=== PATIENT | female | born 1965 | race Caucasian/White ===

== ENCOUNTER 2017-02-13 20:42 | Emergency (ER) | payer OTHER ==
[~2017-02-13] VITALS: Ht 175.3 cm; Wt 120.7 kg
[~2017-02-13 20:42] MED LIST: /AUGM875TA OR; /CELE20CA OR; COLA100C2 OR; PERC5TAB8 OR; PERC7.5T8 OR; SIME80TA PO
[2017-02-13 20:43] VITALS: BP 170/87
== END 2017-02-14 00:22 | disposition left against medical advice (07) ==
LOC: M ED 21:44
DX: M79.89 Other specified soft tissue disorders (principal); Z53.21 Procedure and treatment not carried out due to patient leaving prior to being seen by health care provider

== ENCOUNTER → 2017-02-15 | Outpatient (CLI) | payer OTHER ==
--- NOTE | 2017-02-15 13:27 | REP ---
Right lower extremity Duplex Doppler venous ultrasound: Real time compression and duplex Doppler interrogation of the right lower extremity deep venous system is performed. The right common femoral, superficial femoral and popliteal veins are fully compressible with transducer pressure and demonstrate normal spontaneous and phasic flow, without evidence of deep venous thrombosis. Impression: No evidence of deep venous thrombosis of the right lower extremity femoral popliteal venous system. Signed by Cruz Perrin MD 02/15/2017 01:19 P
== END ==
LOC: M RAD 12:45
PROVIDERS: ATTEND Nurse Practitioner Family
DX: M79.604 Pain in right leg (principal)

== ENCOUNTER 2017-03-23 19:26 | Emergency (ER) | payer OTHER, SELFPAY ==
[~2017-03-23] VITALS: Ht 175.3 cm; Wt 121.4 kg
[2017-03-23] MEDS ORDERED: VITA500C24 PO (19:34)
[2017-03-23] MEDS ORDERED: ALBU17IN INH (19:34)
[2017-03-23] MEDS ORDERED: MULT1TAB18 PO (19:34)
[2017-03-23] MEDS ORDERED: HYDR12.55 PO (19:34)
[2017-03-23] MEDS ORDERED: VITA50003 PO (19:34)
--- NOTE | 2017-03-23 21:00 | REPUSA ---
CLINICAL HISTORY: Edema. COMMENTS: Real time sonography with duplex doppler was performed with attention to the major deep venous struct ures. Evaluation reveals the common femoral, superficial femoral, popliteal and posterior tibial veins to be completely compressible without intraluminal thrombus. There is normal spontaneous phasic flow and augmentation in all deep veins. The greater saphenous/common femoral vein junction is patent. IMPRESSION: No evidence of DVT. Thank you for your kind referral of this patient.
[2017-03-23] MEDS ORDERED: CLEO300C2 PO (21:08)
[2017-03-23] MEDS ORDERED: NORCOTAB PO (21:08)
[2017-03-23] MEDS ORDERED: NORCO, ANEXSIA 5/325MG TABLET (HYDROcodone/ACETAMINOPHEN) PO ONE (21:15)
[2017-03-23] MEDS ORDERED: CLINDAMYCIN 150 MG CAP PO ONE (21:15)
[2017-03-23 21:18] VITALS: BP 133/78
== END 2017-03-23 21:37 | disposition home or self-care (01) ==
LOC: M ED 20:36
DX: L03.116 Cellulitis of left lower limb (principal); F41.9 Anxiety disorder, unspecified; F32.9 Major depressive disorder, single episode, unspecified; F17.200 Nicotine dependence, unspecified, uncomplicated; Z98.84 Bariatric surgery status; Z88.2 Allergy status to sulfonamides; Z79.899 Other long term (current) drug therapy

== ENCOUNTER 2017-07-03 21:12 | Emergency (ER) | payer OTHER, SELFPAY ==
[~2017-07-03] VITALS: Ht 175.3 cm; Wt 122.6 kg
[~2017-07-03 21:12] MED LIST changes: +ALBU17IN INH; +CLEO300C2 PO; +HYDR12.55 PO; +MULT1TAB18 PO; +NORCOTAB PO; +VITA1CAP40 PO; +VITA500C24 PO
[2017-07-03 21:13] VITALS: BP 143/87
[2017-07-03] MEDS ORDERED: TETRACAINE 0.5% OPHTH SOLN 4ML OD ONE (22:00)
== END 2017-07-03 22:56 | disposition home or self-care (01) ==
LOC: M ED 21:12
DX: H11.31 Conjunctival hemorrhage, right eye (principal); I10 Essential (primary) hypertension; J44.9 Chronic obstructive pulmonary disease, unspecified; Z72.0 Tobacco use

== ENCOUNTER 2017-07-04 22:50 | Emergency (ER) | payer OTHER ==
[~2017-07-04] VITALS: Ht 175.3 cm; Wt 122.7 kg
[2017-07-05 00:35] VITALS: BP 128/80
[2017-07-05] MEDS ORDERED: ARTI99.0 OU (00:39)
[2017-07-05] MEDS ORDERED: FLUORESCEIN OPHTH 1 MG STRIP OD ONE (00:45)
== END 2017-07-05 01:00 | disposition home or self-care (01) ==
LOC: M ED 22:50
DX: H11.31 Conjunctival hemorrhage, right eye (principal); Z72.0 Tobacco use

== ENCOUNTER → 2017-08-01 | Outpatient (REF) | payer OTHER ==
[~2017-08-01] MED LIST changes: +ARTI99.0 OU; +PAXI10TA12 PO
[2017-08-01 21:35] LABS: BACTERIA, URINE MOD AMOUNT; RBC, URINE 0-1 /hpf (0-3); SQUAMOUS EPITHELIAL CELL URINE LARGE AMOUNT /hpf (SMALL AMT)
[2017-08-01 21:36] LABS: HYALINE CAST, URINE 0-1 /lpf (0-1); MICROSCOPIC EXAM PERFORMED
== END ==
LOC: M SMT 16:55
PROVIDERS: ATTEND Specialist
DX: R35.0 Frequency of micturition (principal)

== ENCOUNTER 2017-08-09 22:42 | Emergency (ER) | payer OTHER ==
[~2017-08-09] VITALS: Ht 175.3 cm; Wt 122.7 kg
[~2017-08-09 22:42] MED LIST changes: -PAXI10TA12 PO
[2017-08-09] MEDS ORDERED: PAXI10TA12 PO (22:51)
[2017-08-10 01:23] VITALS: BP 148/72
== END 2017-08-10 05:18 | disposition left against medical advice (07) ==
LOC: M ED 22:42
DX: M79.669 Pain in unspecified lower leg (principal); Z53.29 Procedure and treatment not carried out because of patient's decision for other reasons

== ENCOUNTER → 2017-08-30 | Outpatient (CLI) | payer OTHER ==
[~2017-08-30] MED LIST changes: +METHACHOLINE KIT (J7674) INH ONE; +PAXI10TA12 PO
[2017-08-30 15:55] LABS: MEAN CORPUSCULAR HEMOGLOBIN 28.9 pg (27.0-33.0); MEAN CORPUSCULAR HGB CONC 32.7 g/dl (32.0-36.5); MEAN CORPUSCULAR VOLUME 88.3 fl (80.0-96.0); PLATELET COUNT, AUTOMATED 301 10^3/uL (150-450); RED CELL DISTRIBUTION WIDTH 13.1 % (11.5-14.5); WHITE BLOOD COUNT 8.3 10^3/uL (4.0-10.0)
--- NOTE | 2017-08-30 16:17 | PFTRPT ---
Tech: Dax CRUZ RRT Age: 52 Sex: Female Race: Height: 66.00 Inches Weight: 263.00 Lbs BSA: 2.25 Diagnosis: R06.00 PULMONARY FUNCTION TESTING: ORDERING PROVIDER: DAVID Marshall DATE OF SERVICE: 08/30/17 SPIROMETRY: Pre and post bronchodilator study of excellent technical quality. The forced vital capacity is normal. The FEV1 is in proportion. The obstructive index is, therefore, normal. FLOW VOLUME LOOP: The expiratory limb of the flow volume loop is normal. No significant bronchodilator response is identified. LUNG MECHANICS: The total lung capacity is normal. The residual volume is borderline for air trapping. DIFFUSION CAPACITY: The diffusion capacity is normal. HEMOGLOBIN: No hemoglobin is available for correction. AIRWAY MECHANICS: Airway resistance and conductance are only mildly abnormal. IMPRESSION: Probably normal study. MTDD
[2017-08-30 16:20] LABS: ALBUMIN 3.7 GM/DL (3.2-5.2); ALKALINE PHOSPHATASE 121 U/L (45-117); ALT/SGPT 32 U/L (12-78); ANION GAP 9 MEQ/L (8-16); AST/SGOT 21 U/L (15-37); BILIRUBIN,TOTAL 0.3 MG/DL (0.2-1.0); BLOOD UREA NITROGEN 17 MG/DL (7-18); CALCIUM LEVEL 9.1 MG/DL (8.5-10.1); CARBON DIOXIDE LEVEL 28 MEQ/L (21-32); CHLORIDE LEVEL 102 MEQ/L (98-107); CREATININE FOR GFR 0.69 MG/DL (0.55-1.02); GLOMERULAR FILTRATION RATE > 60.0 (>51); GLUCOSE, FASTING 102 MG/DL (70-105); POTASSIUM SERUM 4.2 MEQ/L (3.5-5.1); SODIUM LEVEL 139 MEQ/L (136-145); TOTAL PROTEIN 7.4 GM/DL (6.4-8.2)
[2017-08-30 16:57] LABS: VITAMIN B12 LEVEL 326 PG/ML (247-911)
== END ==
LOC: M CARPUL 14:45
PROVIDERS: ATTEND Nurse Practitioner Adult Health
DX: R60.0 Localized edema (principal)

== ENCOUNTER → 2017-09-27 | Outpatient (CLI) | payer OTHER ==
[~2017-09-27] MED LIST changes: -METHACHOLINE KIT (J7674) INH ONE
--- NOTE | 2017-09-27 09:59 | REP ---
BILATERAL MAMMOGRAM: Bilateral mammography performed in the MLO and CC projections and compared to prior study 05/08/2014. Mild scattered fibroglandular tissue is again seen bilaterally in a fairly symmetrical pattern. There does appear to be a new 5 mm nodular density medially in the left breast, only seen on the CC view, not on the MLO view. No other new mass or clustered microcalcifications are seen. IMPRESSION: ACR 0 incomplete. Suspect new 5 mm nodular density medially in the left breast, only seen on the CC view. Recommend spot compression view in the CC projection of the left breast, as well as left ML view. Other views and ultrasound may also be necessary. BI-RADS/ACR category 0 mammogram, incomplete. Additional imaging and/or prior mammograms for comparison. Using the Tyrer-Cuzick model, the patient's lifetime risk of breast cancer is 21.4%, therefore supplemental screening MRI is recommended. This mammogram was interpreted with the aid of an FDA-approved computer-aided detection system. A. Negative x-ray reports should not delay biopsy if a dominant or clinically suspicious mass is present. B. Four to eight percent of cancers are not identified by x-ray. C. Adenosis and dense breasts may obscure an underlying neoplasm. The patient states she has not had a clinical breast exam in over a year. The patient letter being requested is M0. Signed by Cruz Perrin MD 09/27/2017 04:56 P
== END ==
LOC: M WHC 07:51
PROVIDERS: ATTEND Nurse Practitioner Adult Health
DX: Z12.31 Encounter for screening mammogram for malignant neoplasm of breast (principal)

== ENCOUNTER → 2017-10-04 | Outpatient (CLI) | payer OTHER ==
--- NOTE | 2017-10-04 17:10 | REP ---
Digital diagnostic unilateral left breast mammography with CAD and focused left breast sonography: History: Screening mammography from September 27, 2017 was BIRADS category zero incomplete because of a possible new 5 mm nodular density projecting medially on the CC view only. Diagnostic imaging was recommended. Comparison is also made with prior mammography from May 08, 2014 and March 19, 2005. Findings: Magnified focal spot compression CC, true MLO, and MLO views of the left breast were obtained. The nodular opacity described on the CC view from September 27, 2017 is again seen. It is sharply circumscribed and appears to be adjacent to a vein on at least two of the projection images. No other mammographic abnormality is seen. Sonographic findings: Focused left breast sonography is performed. The left breast is scanned from 6 o'clock to 9 o'clock in the inferior and medial quadrant. In the 7 o'clock position of the left breast there is a small cyst measuring 0.3 x 0.2 x 0.3 cm. In addition at 7 o'clock there is a compressible somewhat elongate segment of the vein. No suspicious sonographic finding is seen. Impression: BIRADS category II benign left breast imaging. Small cyst seen in the left inferomedial breast. This is felt to correspond to the mammographic opacity. Repeat bilateral screening mammography recommended 1 year. BI-RADS/ACR category 2 mammogram. Benign finding(s). Routine annual screening mammography (for women over age 40). This mammogram was interpreted with the aid of an FDA-approved computer-aided detection system. The patient states that she has not had a clinical breast exam in over a year. The patient letter being requested is m1. Signed by Prieto King MD 10/05/2017 11:17 A
== END ==
LOC: M RAD 14:18
PROVIDERS: ATTEND Nurse Practitioner Adult Health
DX: N63.20 Unspecified lump in the left breast, unspecified quadrant (principal)
CPT/HCPCS: 76642; G0206

== ENCOUNTER → 2017-12-29 | Outpatient (REF) | payer OTHER | LOC: M LAB REF 12:55 | DX: J11.1 Influenza due to unidentified influenza virus with other respiratory manifestations (principal) | CPT/HCPCS: 87502 ==

== ENCOUNTER → 2018-01-03 | Outpatient (CLI) | payer OTHER | LOC: M SMT 11:18 | DX: J11.1 Influenza due to unidentified influenza virus with other respiratory manifestations (principal) | CPT/HCPCS: 71046 ==

== ENCOUNTER → 2018-01-03 | Outpatient (REF) | payer OTHER ==
[2018-01-03 13:47] LABS: BASO % 0.3 % (0.0-1.0); EOS # 0.1 10^3/uL (0.0-0.50); EOS % 1.9 % (0.0-3.0); HEMATOCRIT 41.4 % (36.0-47.0); HEMOGLOBIN 13.8 g/dl (12.0-16.0); IMMATURE GRANULOCYTE % 0.6 % (0-3.0); LYMPH # 1.6 10^3/uL (1.5-4.5); LYMPH % 23.9 % (24.0-44.0); MEAN CORPUSCULAR HEMOGLOBIN 28.9 pg (27.0-33.0); MEAN CORPUSCULAR HGB CONC 33.3 g/dl (32.0-36.5); MEAN CORPUSCULAR VOLUME 86.8 fl (80.0-96.0); MONO # 0.4 10^3/uL (0.0-0.8); MONO % 6.1 % (0.0-5.0); NEUTROPHILS # 4.6 10^3/uL (1.8-7.7); NEUTROPHILS % 67.2 % (36.0-66.0); PLATELET COUNT, AUTOMATED 275 10^3/uL (150-450); RED BLOOD COUNT 4.77 10^6/uL (4.00-5.40); RED CELL DISTRIBUTION WIDTH 13.1 % (11.5-14.5); WHITE BLOOD COUNT 6.9 10^3/uL (4.0-10.0)
[2018-01-03 14:02] LABS: ALBUMIN 3.5 GM/DL (3.2-5.2); ALBUMIN/GLOBULIN RATIO 1.03 (1.00-1.93); ALKALINE PHOSPHATASE 79 U/L (45-117); ALT/SGPT 16 U/L (12-78); ANION GAP 7 MEQ/L (8-16); AST/SGOT 14 U/L (7-37); BILIRUBIN,TOTAL 0.3 MG/DL (0.2-1.0); BLOOD UREA NITROGEN 12 MG/DL (7-18); CALCIUM LEVEL 8.8 MG/DL (8.5-10.1); CARBON DIOXIDE LEVEL 29 MEQ/L (21-32); CHLORIDE LEVEL 104 MEQ/L (98-107); GLOMERULAR FILTRATION RATE > 60.0 (>51); GLUCOSE, FASTING 101 MG/DL (70-100); SODIUM LEVEL 140 MEQ/L (136-145); TOTAL PROTEIN 6.9 GM/DL (6.4-8.2)
== END ==
LOC: M SFHCPLAZ 10:25
DX: J11.1 Influenza due to unidentified influenza virus with other respiratory manifestations (principal)

== ENCOUNTER 2018-04-17 17:31 | Emergency (ER) | payer OTHER ==
[2018-04-17] MEDS: ACETAMINOPHEN 325 MG TAB PO (18:45)
[2018-04-17] MEDS: LISSAMINE GREEN OPHTH 1.5 MG STRIP OD (19:00)
[2018-04-17] MEDS: TETRACAINE 0.5% OPHTH SOLN 4ML OD (19:00)
== END 2018-04-17 19:55 | disposition home or self-care (01) ==
LOC: M ED 17:31
DX: H11.31 Conjunctival hemorrhage, right eye (principal); J45.909 Unspecified asthma, uncomplicated; F33.9 Major depressive disorder, recurrent, unspecified; Z79.899 Other long term (current) drug therapy; Z88.2 Allergy status to sulfonamides; Z91.030 Bee allergy status
CPT/HCPCS: 99283

== ENCOUNTER 2018-04-29 19:17 | Emergency (ER) | payer OTHER ==
[2018-04-29] MEDS: AUGMENTIN 875 MG TAB PO (20:54)
[2018-04-29] MEDS: dexameTHASONE 4 MG/ML 1ML VIAL (J1100) PO (20:54)
== END 2018-04-29 21:34 | disposition home or self-care (01) ==
LOC: M ED 19:17
DX: J02.0 Streptococcal pharyngitis (principal); Z72.0 Tobacco use; Z98.84 Bariatric surgery status; I51.9 Heart disease, unspecified; J45.909 Unspecified asthma, uncomplicated; F41.9 Anxiety disorder, unspecified; F32.9 Major depressive disorder, single episode, unspecified; Z79.899 Other long term (current) drug therapy; Z88.2 Allergy status to sulfonamides; Z91.030 Bee allergy status
CPT/HCPCS: J1100

== ENCOUNTER → 2018-07-19 | Outpatient (REF) | payer OTHER ==
[2018-07-19 12:39] LABS: HEMOGLOBIN 13.6 g/dl (12.0-15.5); MEAN CORPUSCULAR HEMOGLOBIN 28.6 pg (27.0-33.0); MEAN CORPUSCULAR HGB CONC 31.6 g/dl (32.0-36.5); MEAN CORPUSCULAR VOLUME 90.5 fl (80.0-96.0); PLATELET COUNT, AUTOMATED 277 10^3/uL (150-450); RED BLOOD COUNT 4.75 10^6/uL (4.00-5.40); WHITE BLOOD COUNT 6.1 10^3/uL (4.0-10.0)
[2018-07-19 14:37] LABS: ALBUMIN 3.6 GM/DL (3.2-5.2); ALBUMIN/GLOBULIN RATIO 1.06 (1.00-1.93); ALKALINE PHOSPHATASE 97 U/L (45-117); ALT/SGPT 22 U/L (12-78); ANION GAP 10 MEQ/L (8-16); AST/SGOT 15 U/L (7-37); BILIRUBIN,TOTAL 0.3 MG/DL (0.2-1.0); BLOOD UREA NITROGEN 10 MG/DL (7-18); CALCIUM LEVEL 9.3 MG/DL (8.5-10.1); CARBON DIOXIDE LEVEL 23 MEQ/L (21-32); CHLORIDE LEVEL 107 MEQ/L (98-107); CREATININE FOR GFR 0.71 MG/DL (0.55-1.30); GLOMERULAR FILTRATION RATE > 60.0 (>51); GLUCOSE, FASTING 125 MG/DL (70-100); POTASSIUM SERUM 4.2 MEQ/L (3.5-5.1); SODIUM LEVEL 140 MEQ/L (136-145); TOTAL 25(OH) VITAMIN D 23.2 NG/ML (30.0-100.0)
[2018-07-19 16:43] LABS: ESTIMATED AVERAGE GLUCOSE 108 MG/DL (60-110); HEMOGLOBIN A1c 5.4 %
== END ==
LOC: M SFHCPLAZ 09:21
DX: Z00.00 Encounter for general adult medical examination without abnormal findings (principal); I50.32 Chronic diastolic (congestive) heart failure; E55.9 Vitamin D deficiency, unspecified; Z98.890 Other specified postprocedural states

== ENCOUNTER → 2018-07-20 | Outpatient (CLI) | payer OTHER | LOC: M RAD 10:05 | DX: M25.561 Pain in right knee (principal) | CPT/HCPCS: 73560 ==

== ENCOUNTER → 2018-11-16 | Outpatient (CLI) | payer OTHER ==
[~2018-11-16] MED LIST changes: +AUGM875T28 PO; +CHERSYP3 PO; +FLON1SPR NARES; +FURO40TA2; +MAGICMW SS; +TESS100C PO; -VITA1CAP40 PO; +VITA50005 PO; +ZITHTAB PO
--- NOTE | 2018-11-17 08:37 | REPMRS ---
Patient History The patient states she had a clinical breast exam in 8 months ago.Family history of breast cancer under age 50 in sister, colorectal cancer in maternal grandmother. Digital Mammo Screening Bilat: November 16, 2018 - Exam #: [id number] Bilateral CC and MLO view(s) were taken. Technologist: Jackie Lopez, Technologist Prior study comparison: September 27, 2017, digital woman screen mammo, performed at [facility]. May 08, 2014, digital woman screen mammo, performed at [facility]. March 19, 2005, bilateral screening mammogram, performed at [facility]. FINDINGS: There are scattered fibroglandular densities. Previously noted small cyst is again seen in the left breast medially unchanged. There has been no change in the appearance of the mammogram from the prior studies. There is a mild amount of scattered fibroglandular density which is fairly symmetric. There is no interval development of dominant mass, architectural distortion, or clustered microcalcification suggestive of malignancy. 3-D tomosynthesis shows no additional findings. Assessment: BI-RADS/ACR category 2 mammogram. Benign finding(s). Recommendation Breast MRI of both breasts in 6 months. Routine screening mammogram of both breasts in 1 year (for women over age 40). This patient's Lifetime Breast Cancer RIsk is estimated at 20.9 %. Annual screening Breast MRI scanniing is recommended for patient's whose lifetime risk assessment is over 20%. This mammogram was interpreted with the aid of an FDA-approved computer-aided dectection system. Electronically Signed By: Tano King MD 11/17/18 0836
== END ==
LOC: M RAD 16:48
PROVIDERS: ATTEND Nurse Practitioner Adult Health
DX: Z12.31 Encounter for screening mammogram for malignant neoplasm of breast (principal); N60.02 Solitary cyst of left breast; Z80.3 Family history of malignant neoplasm of breast; Z80.0 Family history of malignant neoplasm of digestive organs

== ENCOUNTER → 2019-01-17 | Outpatient (REF) | payer OTHER ==
[2019-01-17 12:15] LABS: HEMATOCRIT 44.4 % (36.0-47.0); MEAN CORPUSCULAR HEMOGLOBIN 28.5 pg (27.0-33.0); MEAN CORPUSCULAR HGB CONC 31.5 g/dl (32.0-36.5); MEAN CORPUSCULAR VOLUME 90.2 fl (80.0-96.0); PLATELET COUNT, AUTOMATED 307 10^3/uL (150-450); RED BLOOD COUNT 4.92 10^6/uL (4.00-5.40); WHITE BLOOD COUNT 7.6 10^3/uL (4.0-10.0)
[2019-01-17 13:16] LABS: ALBUMIN 3.8 GM/DL (3.2-5.2); ALT/SGPT 19 U/L (12-78); BILIRUBIN,TOTAL 0.3 MG/DL (0.2-1.0); BLOOD UREA NITROGEN 12 MG/DL (7-18); CALCIUM LEVEL 8.9 MG/DL (8.5-10.1); CARBON DIOXIDE LEVEL 25 MEQ/L (21-32); CHLORIDE LEVEL 104 MEQ/L (98-107); CREATININE FOR GFR 0.77 MG/DL (0.55-1.30); FERRITIN 25 NG/ML (8-252); GLOMERULAR FILTRATION RATE > 60.0 (>51); GLUCOSE, FASTING 116 MG/DL (70-100); IRON (FE) 51 UG/DL (50-170); PERCENT SATURATION 15.4 % (13.2-45.0); POTASSIUM SERUM 4.4 MEQ/L (3.5-5.1); SODIUM LEVEL 139 MEQ/L (136-145); TOTAL IRON BINDING CAPACITY 331 UG/DL (250-450); VITAMIN B12 LEVEL 331 PG/ML (247-911)
== END ==
LOC: M SFHCPLAZ 08:47
PROVIDERS: ATTEND Nurse Practitioner Adult Health
DX: E55.9 Vitamin D deficiency, unspecified (principal); Z98.890 Other specified postprocedural states; I11.0 Hypertensive heart disease with heart failure

== ENCOUNTER 2019-02-27 10:43 | Emergency (ER) | payer OTHER ==
[~2019-02-27] VITALS: Ht 175.3 cm; Wt 121.0 kg
[~2019-02-27 10:43] MED LIST changes: -/CELE20CA OR; +CELE1CAP4 OR; +HYDR-3715 PO; -NORCOTAB PO
[2019-02-27] MEDS ORDERED: IBUPROFEN 800 MG TAB PO ONE (12:15)
--- NOTE | 2019-02-27 12:58 | REP ---
RIGHT LOWER LEG: AP and lateral views of right lower leg performed. No acute fracture or dislocation is seen. There is moderate medial joint space narrowing of the knee with subchondral sclerosis. There is mild spurring at the margins of the joint. Ankle mortise is anatomic. There is moderate inferior calcaneal spurring. IMPRESSION: No acute fracture or dislocation. Electronically Signed by Cruz Perrin MD 02/28/2019 10:22 A
[2019-02-27] MEDS ORDERED: MOBI4TAB PO (13:02)
[2019-02-27 13:10] VITALS: BP 127/86
== END 2019-02-27 13:11 | disposition home or self-care (01) ==
LOC: M ED 10:43
DX: S80.11XA Contusion of right lower leg, initial encounter (principal); W18.2XXA Fall in (into) shower or empty bathtub, initial encounter; Y92.012 Bathroom of single-family (private) house as the place of occurrence of the external cause; Z79.899 Other long term (current) drug therapy; Z88.2 Allergy status to sulfonamides; Z91.030 Bee allergy status

== ENCOUNTER 2019-05-14 21:37 | Emergency (ER) | payer OTHER ==
[~2019-05-14] VITALS: Ht 175.3 cm; Wt 122.3 kg
[~2019-05-14 21:37] MED LIST changes: +MOBI4TAB PO
[2019-05-15] MEDS ORDERED: KETOROLAC 60 MG/2 ML VIAL (J1885) IM ONE (03:00)
[2019-05-15 03:24] VITALS: BP 155/80
--- NOTE | 2019-05-15 09:55 | REP ---
Clinical: Right knee pain. Technique: AP, lateral, bilateral oblique and sunrise views of the right knee. Findings: Moderate/early advanced tricompartmental osteoarthritic degenerative changes are appreciated. Findings include subchondral sclerosis, cortical irregularities, marginal osteophytosis, joint space narrowing and minimal chondrocalcinosis. No acute fracture or dislocation. No definite effusion. Impression: Moderate/early tricompartmental osteoarthritic degenerative changes. Electronically Signed by Az Gordon MD 05/15/2019 09:46 A
== END 2019-05-15 03:25 | disposition home or self-care (01) ==
LOC: M ED 21:37
DX: S83.91XA Sprain of unspecified site of right knee, initial encounter (principal); W01.0XXA Fall on same level from slipping, tripping and stumbling without subsequent striking against object, initial encounter; Y92.9 Unspecified place or not applicable; Y93.01 Activity, walking, marching and hiking; M17.11 Unilateral primary osteoarthritis, right knee; I10 Essential (primary) hypertension; J45.909 Unspecified asthma, uncomplicated; Z79.51 Long term (current) use of inhaled steroids; Z79.899 Other long term (current) drug therapy; Z88.2 Allergy status to sulfonamides; Z91.030 Bee allergy status; Z98.84 Bariatric surgery status
CPT/HCPCS: 73564; 96372; 99284; J1885

== ENCOUNTER 2019-07-08 15:04 | Emergency (ER) | payer OTHER ==
[~2019-07-08] VITALS: Ht 170.2 cm; Wt 121.3 kg
[~2019-07-08 15:04] MED LIST changes: -ARTI99.0 OU; +ARTIDRO2 OU
[2019-07-08] MEDS ORDERED: ESCI10TA2 OR (15:23)
[2019-07-08] MEDS ORDERED: IPRATROPIUM 0.5MG/ALBUTEROL 2.5MG INH SOL UD 3ML (DUONEB)(J7620) NEB ONE (15:30)
--- NOTE | 2019-07-08 15:45 | REP ---
Clinical: chest pain. Comparison: 01/03/2018. Findings: The mediastinum and cardiac silhouette are stable and within normal limits for portable technique. The lung rudolph are clear without acute consolidation, effusion, or pneumothorax. Skeletal structures are intact. Impression: No acute cardiopulmonary process appreciated. Electronically Signed by Az Gordon MD 07/08/2019 03:37 P
[2019-07-08 16:26] LABS: BASO % 0.2 % (0.0-1.0); EOS # 0.2 10^3/uL (0.0-0.5); EOS % 1.7 % (0.0-3.0); HEMATOCRIT 42.8 % (36.0-47.0); HEMOGLOBIN 13.7 g/dl (12.0-15.5); LYMPH # 1.9 10^3/uL (1.5-5.0); LYMPH % 21.6 % (24.0-44.0); MEAN CORPUSCULAR HEMOGLOBIN 28.6 pg (27.0-33.0); MEAN CORPUSCULAR VOLUME 89.4 fl (80.0-96.0); MONO # 0.4 10^3/uL (0.0-0.8); MONO % 4.3 % (0.0-5.0); NEUTROPHILS # 6.4 10^3/uL (1.5-8.5); NEUTROPHILS % 71.9 % (36.0-66.0); PLATELET COUNT, AUTOMATED 290 10^3/uL (150-450); RED BLOOD COUNT 4.79 10^6/uL (4.00-5.40); WHITE BLOOD COUNT 8.9 10^3/uL (4.0-10.0)
[2019-07-08 16:36] LABS: INR 1.01
[2019-07-08 16:37] LABS: PARTIAL THROMBOPLASTIN TIME 28.1 SECONDS (25.0-38.4)
[2019-07-08 16:52] LABS: ALBUMIN 3.5 GM/DL (3.2-5.2); ALT/SGPT 15 U/L (12-78); BILIRUBIN,DIRECT 0.1 MG/DL (0.0-0.2); BILIRUBIN,TOTAL 0.3 MG/DL (0.2-1.0); BLOOD UREA NITROGEN 11 MG/DL (7-18); C REACTIVE PROTEIN QUANTITATIV 1.53 MG/DL (0.00-0.30); CARBON DIOXIDE LEVEL 28 MEQ/L (21-32); CHLORIDE LEVEL 106 MEQ/L (98-107); CK-MB VALUE MASS 3.5 NG/ML (<3.6); CPK CREATINE PHOSPHOKINASE 181 U/L (26-192); CREATININE FOR GFR 0.73 MG/DL (0.55-1.30); GLOMERULAR FILTRATION RATE > 60.0 (>51); GLUCOSE, FASTING 142 MG/DL (70-100); LIPASE 510 U/L (73-393); MB/CK RELATIVE INDEX 1.93 (< OR =4); NT-PRO BNP 127 PG/ML (<125); POTASSIUM SERUM 3.8 MEQ/L (3.5-5.1); SODIUM LEVEL 142 MEQ/L (136-145); TOTAL PROTEIN 6.8 GM/DL (6.4-8.2); TROPONIN I < 0.02 NG/ML (< 0.10)
[2019-07-08] MEDS ORDERED: ISOVUE-370 76% 100ML VIAL (Q9967) As Ordered ONE (17:56)
--- NOTE | 2019-07-08 19:03 | REPVR ---
EXAM: CT Abdomen and Pelvis With Contrast EXAM DATE/TIME: 07/08/2019 6:03 PM CLINICAL HISTORY: 53 years old, female; Abdominal pain; Epigastric; Additional info: Pancreatitis TECHNIQUE: Imaging protocol: Computed tomography of the abdomen and pelvis with intravenous contrast. Radiation optimization: All CT scans at this facility use at least one of these dose optimization techniques: automated exposure control; mA and/or kV adjustment per patient size (includes targeted exams where dose is matched to clinical indication); or iterative reconstruction. Contrast material: SOVUE 370; Contrast volume: 100 ml; Contrast route: IV; COMPARISON: No relevant prior studies available. FINDINGS: Lungs: No suspicious mass or airspace process in the visualized lung bases. Pulmonary vascular/interstitial pattern does not suggest active pulmonary edema. Liver: Liver appears normal with no focal abnormality. Gallbladder and bile ducts: Gallbladder is surgically absent. Pancreas: Pancreas appears normal. No focal mass or peripancreatic inflammation. Spleen: Spleen appears homogeneous without focal mass. Adrenals: Adrenal glands are normal in appearance. Kidneys and ureters: Kidneys appear normal, with no stone, solid mass or hydronephrosis. Stomach and bowel: Gastric diversion procedure surgical changes are present. No evidence of small bowel obstruction. Sparse colonic diverticula are present without evidence of inflammation. Appendix: Appendix is not seen. No RLQ inflammation to suggest appendicitis. Intraperitoneal space: No pneumoperitoneum. No abnormal pelvic mass. Vasculature: Main portal and splenic veins enhance normally. Atherosclerotic change present in the aorta, without aneurysm. Lymph nodes: No enlarged lymph nodes. Bladder: Bladder appears normal. Reproductive: Uterus is surgically absent. Bones/joints: Degenerative changes are seen in the lumbar spine with disc height loss, endplate osteophytes and hypertrophic facet arthropathy. Soft tissues: Fat containing umbilical hernia is present. Ventral hernia repair changes are present anteriorly without dehiscence IMPRESSION: 1. No evidence of acute pancreatitis. No explanation for acute epigastric pain. 2. Postsurgical changes of gastric bypass and ventral hernia repair without evidence of complication Electronically signed by: Bismark Klein On 07/08/2019 19:03:10 PM
--- NOTE | 2019-07-08 19:05 | ECGEPIP ---
[facility] - ED Test Date: 2019-07-08 Pat Name: BRAULIO ENGLISH Department: Room: - Gender: Female Consulting Solution Manager: imelda : 1965 Requested By: Emily Zamarripa Order Number: [id number] Reading MD: Emily Zamarripa Measurements Intervals [place] Rate: 89 P: -18 FL: 136 QRS: 2 QRSD: 98 T: -33 QT: 361 QTc: 440 Interpretive Statements SINUS RHYTHM NONSPECIFIC T-WAVE ABNORMALITY VS ISCHEMIA CLINICAL CORRELATION ADVISED NO PRIOR ECG FOR COMPARISON Electronically Signed on 07-08-2019 19:05:01 EDT by Emily Zamarripa
[2019-07-08] MEDS ORDERED: GI COCKTAIL 50ML BTL(HYOSCYAMINE/MAALOX/LIDOCAINE VISCOUS)(1:3:1) PO ONE (19:30)
[2019-07-08 20:31] LABS: CK-MB VALUE MASS 2.2 NG/ML (<3.6); CPK CREATINE PHOSPHOKINASE 142 U/L (26-192); MB/CK RELATIVE INDEX 1.55 (< OR =4); TROPONIN I < 0.02 NG/ML (< 0.10)
[2019-07-08 20:33] VITALS: BP 132/75
--- NOTE | 2019-07-09 06:37 | ECGEPIP ---
[facility] - ED Test Date: 2019-07-08 Pat Name: BRAULIO ENGLISH Department: Room: - Gender: Female International Sales Manager: waldemar : 1965 Requested By: NADIR Rod Order Number: [id number] Reading MD: Emily Zamarripa Measurements Intervals [place] Rate: 76 P: -13 NE: 126 QRS: 3 QRSD: 107 T: -54 QT: 380 QTc: 429 Interpretive Statements SINUS RHYTHM SHORT NE INTERVAL NONSPECIFIC T-WAVE ABNORMALITY VS ISCHEMIA CW 07/08/[address] T WAVE CHANGES Electronically Signed on 07-09-2019 6:37:38 EDT by Emily Zamarripa
== END 2019-07-08 20:48 | disposition home or self-care (01) ==
LOC: M ED 15:04
DX: K85.90 Acute pancreatitis without necrosis or infection, unspecified (principal); E11.9 Type 2 diabetes mellitus without complications; I50.9 Heart failure, unspecified; I11.0 Hypertensive heart disease with heart failure; J45.909 Unspecified asthma, uncomplicated; E78.5 Hyperlipidemia, unspecified; F31.9 Bipolar disorder, unspecified; R32 Unspecified urinary incontinence; Z79.899 Other long term (current) drug therapy; Z88.1 Allergy status to other antibiotic agents; Z88.2 Allergy status to sulfonamides; Z91.030 Bee allergy status; F17.210 Nicotine dependence, cigarettes, uncomplicated
CPT/HCPCS: 36415; 71045; 74177; 80048; 80076; 82550; 82553; 83690; 83880; 84443; 85025; 85610; 85730; 86140; 93005; 93041; 94760; 99285; Q9967

== ENCOUNTER → 2019-07-19 | Outpatient (REF) | payer OTHER ==
[~2019-07-19] MED LIST changes: +ESCI10TA2 OR
[2019-07-19 18:47] LABS: HEMATOCRIT 45.2 % (36.0-47.0); HEMOGLOBIN 14.4 g/dl (12.0-15.5); MEAN CORPUSCULAR HEMOGLOBIN 28.7 pg (27.0-33.0); MEAN CORPUSCULAR HGB CONC 31.9 g/dl (32.0-36.5); MEAN CORPUSCULAR VOLUME 90.2 fl (80.0-96.0); PLATELET COUNT, AUTOMATED 301 10^3/uL (150-450); RED BLOOD COUNT 5.01 10^6/uL (4.00-5.40); WHITE BLOOD COUNT 9.2 10^3/uL (4.0-10.0)
[2019-07-19 19:12] LABS: ALBUMIN 3.5 GM/DL (3.2-5.2); ALT/SGPT 17 U/L (12-78); BILIRUBIN,TOTAL 0.2 MG/DL (0.2-1.0); BLOOD UREA NITROGEN 19 MG/DL (7-18); CALCIUM LEVEL 8.8 MG/DL (8.5-10.1); CARBON DIOXIDE LEVEL 28 MEQ/L (21-32); CHLORIDE LEVEL 106 MEQ/L (98-107); CREATININE FOR GFR 0.62 MG/DL (0.55-1.30); GLOMERULAR FILTRATION RATE > 60.0 (>51); GLUCOSE, FASTING 98 MG/DL (70-100); IRON (FE) 47 UG/DL (50-170); PERCENT SATURATION 14.3 % (13.2-45.0); POTASSIUM SERUM 4.1 MEQ/L (3.5-5.1); SODIUM LEVEL 141 MEQ/L (136-145); TOTAL IRON BINDING CAPACITY 328 UG/DL (250-450); TOTAL PROTEIN 6.7 GM/DL (6.4-8.2)
[2019-07-19 19:20] LABS: TOTAL 25(OH) VITAMIN D 18.8 NG/ML (30.0-100.0)
== END ==
LOC: M SFHCPLAZ 15:49
PROVIDERS: ATTEND Nurse Practitioner Adult Health
DX: I11.0 Hypertensive heart disease with heart failure (principal); Z98.890 Other specified postprocedural states; E55.9 Vitamin D deficiency, unspecified; I50.9 Heart failure, unspecified

== ENCOUNTER 2019-07-29 17:11 | Emergency (ER) | payer OTHER ==
[~2019-07-29] VITALS: Ht 175.3 cm; Wt 120.5 kg
[2019-07-29 17:12] VITALS: BP 151/88
[2019-07-29] MEDS ORDERED: BENA25CA4 PO (17:43)
[2019-07-29] MEDS ORDERED: PRED20TA PO (17:43)
[2019-07-29] MEDS ORDERED: diphenhydrAMINE 25 MG CAP PO ONE (17:45)
[2019-07-29] MEDS ORDERED: predniSONE 20 MG TAB PO ONE (17:45)
[2019-07-29] MEDS ORDERED: hydrOXYzine 25 MG TAB PO ONE (19:00)
== END 2019-07-29 18:15 | disposition home or self-care (01) ==
LOC: M ED 17:11
DX: T63.441A Toxic effect of venom of bees, accidental (unintentional), initial encounter (principal); R22.33 Localized swelling, mass and lump, upper limb, bilateral; J45.909 Unspecified asthma, uncomplicated; F17.200 Nicotine dependence, unspecified, uncomplicated; Z79.51 Long term (current) use of inhaled steroids; Z79.899 Other long term (current) drug therapy; Z88.2 Allergy status to sulfonamides; Z91.030 Bee allergy status

== ENCOUNTER 2019-09-15 17:12 | Emergency (ER) | payer OTHER ==
[~2019-09-15] VITALS: Ht 170.2 cm; Wt 120.8 kg
[~2019-09-15 17:12] MED LIST changes: +BENA25CA4 PO; +PRED20TA PO
[2019-09-15] MEDS ORDERED: predniSONE 20 MG TAB PO ONE (18:15)
[2019-09-15] MEDS ORDERED: GI COCKTAIL 50ML BTL(HYOSCYAMINE/MAALOX/LIDOCAINE VISCOUS)(1:3:1) PO ONE (18:15)
[2019-09-15] MEDS ORDERED: METOCLOPRAMIDE 10 MG TAB PO ONE (18:15)
[2019-09-15] MEDS ORDERED: IPRATROPIUM 0.5MG/ALBUTEROL 2.5MG INH SOL UD 3ML (DUONEB)(J7620) NEB ONE (18:15)
[2019-09-15] MEDS ORDERED: ACETAMINOPHEN 325 MG TAB PO ONE (18:15)
[2019-09-15] MEDS ORDERED: TESS100C PO (19:04)
[2019-09-15] MEDS ORDERED: PRED20TA PO (19:04)
[2019-09-15] MEDS ORDERED: AZIT-12 PO (19:13)
[2019-09-15 19:14] VITALS: BP 120/71
[2019-09-15] MEDS ORDERED: AZITHROMYCIN 250 MG TAB PO ONE (19:15)
--- NOTE | 2019-09-16 08:36 | REP ---
PA and lateral chest: Comparisons are the portable chest dated 07/08/2019 and the PA and lateral chest dated 01/03/2018. There is a left lower lobe infiltrate. The remainder the lung rudolph are clear. Cardiac size is normal. The prince, mediastinum, skeletal structures are unremarkable for patient age. Impression: Left lower lobe infiltrate. Electronically Signed by Cruz Malcolm MD 09/16/2019 08:28 A
== END 2019-09-15 19:17 | disposition home or self-care (01) ==
LOC: M ED 17:12
DX: J06.9 Acute upper respiratory infection, unspecified (principal); H92.03 Otalgia, bilateral; J45.909 Unspecified asthma, uncomplicated; Z79.899 Other long term (current) drug therapy; Z88.1 Allergy status to other antibiotic agents; Z88.2 Allergy status to sulfonamides; Z91.030 Bee allergy status; F17.210 Nicotine dependence, cigarettes, uncomplicated

== ENCOUNTER 2019-11-11 17:05 | Emergency (ER) | payer OTHER ==
[~2019-11-11] VITALS: Ht 170.2 cm; Wt 118.2 kg
[2019-11-11 17:05] VITALS: BP 143/86
[~2019-11-11 17:05] MED LIST changes: +AZIT-12 PO; -FURO40TA2; +FURO40TA2 PO
--- NOTE | 2019-11-12 07:11 | REP ---
Right foot series: Four views. History: Injury. Findings: There is plantar and Achilles calcaneal spurring. Overall mineralization pattern is normal. There is mild soft tissue swelling dorsally and laterally about the midfoot and forefoot. No fracture is seen. Impression: Diffuse soft tissue swelling. Heel spurs. No acute fracture. Electronically Signed by Prieto King MD 11/12/2019 09:02 A
== END 2019-11-11 18:50 | disposition home or self-care (01) ==
LOC: M ED 17:05
DX: S90.31XA Contusion of right foot, initial encounter (principal); W22.8XXA Striking against or struck by other objects, initial encounter; Y92.018 Other place in single-family (private) house as the place of occurrence of the external cause; F33.9 Major depressive disorder, recurrent, unspecified; F41.9 Anxiety disorder, unspecified; Z98.84 Bariatric surgery status; Z79.899 Other long term (current) drug therapy; Z88.1 Allergy status to other antibiotic agents; Z88.2 Allergy status to sulfonamides; Z91.030 Bee allergy status; F17.210 Nicotine dependence, cigarettes, uncomplicated

== ENCOUNTER → 2019-11-13 | Outpatient (REF) | payer OTHER ==
[2019-11-13 11:45] LABS: HEMATOCRIT 43.1 % (36.0-47.0); MEAN CORPUSCULAR HEMOGLOBIN 27.5 pg (27.0-33.0); MEAN CORPUSCULAR HGB CONC 30.2 g/dl (32.0-36.5); MEAN CORPUSCULAR VOLUME 91.3 fl (80.0-96.0); PLATELET COUNT, AUTOMATED 284 10^3/uL (150-450); RED BLOOD COUNT 4.72 10^6/uL (4.00-5.40); WHITE BLOOD COUNT 6.8 10^3/uL (4.0-10.0)
[2019-11-13 13:09] LABS: ALBUMIN 3.4 GM/DL (3.2-5.2); ALT/SGPT 16 U/L (12-78); BILIRUBIN,TOTAL 0.4 MG/DL (0.2-1.0); BLOOD UREA NITROGEN 12 MG/DL (7-18); CALCIUM LEVEL 9.1 MG/DL (8.5-10.1); CARBON DIOXIDE LEVEL 26 MEQ/L (21-32); CHLORIDE LEVEL 105 MEQ/L (98-107); CREATININE FOR GFR 0.68 MG/DL (0.55-1.30); FERRITIN 27 NG/ML (8-252); GLOMERULAR FILTRATION RATE > 60.0 (>51); GLUCOSE, FASTING 96 MG/DL (70-100); IRON (FE) 42 UG/DL (50-170); PERCENT SATURATION 13.5 % (13.2-45.0); POTASSIUM SERUM 4.2 MEQ/L (3.5-5.1); SODIUM LEVEL 139 MEQ/L (136-145); TOTAL IRON BINDING CAPACITY 312 UG/DL (250-450); TOTAL PROTEIN 6.7 GM/DL (6.4-8.2)
[2019-11-13 15:25] LABS: HEMOGLOBIN A1c 5.8 %
== END ==
LOC: M SFHCPLAZ 08:48
PROVIDERS: ATTEND Nurse Practitioner Adult Health
DX: I11.0 Hypertensive heart disease with heart failure (principal); Z98.890 Other specified postprocedural states

== ENCOUNTER → 2019-11-30 | Outpatient (CLI) | payer OTHER ==
[~2019-11-30] MED LIST changes: +PROHANCE 279.3MG/ML 15ML VIAL (A9576) As Ordered ONE; +PROHANCE 279.3MG/ML 5ML VIAL (A9576) As Ordered ONE
--- NOTE | 2019-11-30 16:01 | REP ---
Bilateral breast MRI study without and with IV gadolinium: History: High risk breast cancer screening. Comparison mammography November 16, 2018. Comparison CT abdomen July 08, 2019. Technique: Three Briseida MRI imaging was performed with a dedicated breast coil. Axial, coronal, and sagittal T1 and T2-weighted scans were obtained with and without fat saturation in the usual fashion. The study includes dynamically acquired post gadolinium enhanced imaging subtraction imaging. Maximal intensity projection and multiplanar re-formation imaging is included as well. The study was interpreted with the aid of [employer], an FDA approved computer-aided detection (CAD) software program, on a dedicated breast MRI work station. The gadolinium enhancement dose is 20 ml of intravenous ProHance. Findings: Mild fibroglandular pattern is seen. There is mild multifocal background parenchymal enhancement. No suspicious morphologic abnormality is seen in either breast on high-resolution pre and postcontrast enhanced T1 and T2-weighted scans. Dynamically acquired sequential post contrast enhanced images show no suspicious area of enhancement and washout in either breast to suggest malignancy. There is no evidence of axillary lymphadenopathy or breast cystic change. Subtraction images show no additional abnormality. There is a 3.7 cm nonenhancing cyst in the right epicardial fat at the cardiophrenic angle on the right. Impression: BIRADS category II benign findings. Repeat bilateral breast MRI scanning recommended in 1 year. Electronically Signed by Prieto King MD 11/30/2019 06:40 P
== END ==
LOC: M RAD 10:30
PROVIDERS: ATTEND Nurse Practitioner Adult Health
DX: N60.19 Diffuse cystic mastopathy of unspecified breast (principal)
CPT/HCPCS: A9576; C8908

== ENCOUNTER → 2020-01-07 | Outpatient (CLI) | payer OTHER ==
[~2020-01-07] MED LIST changes: -ARTIDRO2 OU; +POLYOPD OU; -PROHANCE 279.3MG/ML 15ML VIAL (A9576) As Ordered ONE; -PROHANCE 279.3MG/ML 5ML VIAL (A9576) As Ordered ONE
--- NOTE | 2020-01-07 09:27 | REPMRS ---
Patient History The patient states she has not had a clinical breast exam in over a year. Family history of breast cancer under age 50 in sister, colorectal cancer in maternal grandmother. Digital Woman Screen Mammo: January 07, 2020 - Exam #: [id number] Bilateral CC and MLO view(s) were taken. Technologist: Jackie Lopez, Technologist Prior study comparison: November 16, 2018, bilateral digital mammo screening bilat, performed at [facility]. September 27, 2017, digital woman screen mammo performed at [facility]. May 08, 2014, digital woman screen mammo performed at [facility]. FINDINGS: There are scattered fibroglandular densities. There has been no change in the appearance of the mammogram from the prior studies. There is a mild amount of scattered fibroglandular density which is fairly symmetric. There is no interval development of dominant mass, architectural distortion, or grouped microcalcification suggestive of malignancy. 3-D tomosynthesis shows no additional findings. Assessment: BI-RADS/ACR category 1 mammogram. Negative Mammogram. Recommendation Breast MRI of both breasts in 6 months. Routine screening mammogram of both breasts in 1 year (for women over age 40). This patient's Lifetime Breast Cancer Risk is estimated at 20.5 %. Annual screening Breast MRI scanniing is recommended for patient's whose lifetime risk assessment is over 20%. This mammogram was interpreted with the aid of an FDA-approved computer-aided dectection system. Electronically Signed By: Tano King MD 01/07/20 0943
== END ==
LOC: M WHC 08:02
PROVIDERS: ATTEND Nurse Practitioner Adult Health
DX: Z12.31 Encounter for screening mammogram for malignant neoplasm of breast (principal); Z80.0 Family history of malignant neoplasm of digestive organs; Z80.3 Family history of malignant neoplasm of breast

== ENCOUNTER → 2020-05-12 | Outpatient (REF) | payer OTHER ==
[2020-05-12 11:35] LABS: ALBUMIN 3.5 GM/DL (3.2-5.2); ALT/SGPT 19 U/L (12-78); BILIRUBIN,TOTAL 0.5 MG/DL (0.2-1.0); BLOOD UREA NITROGEN 14 MG/DL (7-18); CALCIUM LEVEL 8.9 MG/DL (8.5-10.1); CARBON DIOXIDE LEVEL 28 MEQ/L (21-32); CHLORIDE LEVEL 109 MEQ/L (98-107); CREATININE FOR GFR 0.72 MG/DL (0.55-1.30); GLOMERULAR FILTRATION RATE > 60.0 (>51); GLUCOSE, FASTING 98 MG/DL (70-100); SODIUM LEVEL 140 MEQ/L (136-145); TOTAL PROTEIN 6.7 GM/DL (6.4-8.2)
[2020-05-12 11:38] LABS: VITAMIN B12 LEVEL 447 PG/ML (247-911)
[2020-05-12 11:43] LABS: HEMOGLOBIN A1c 5.7 %
== END ==
LOC: M SFHCPLAZ 09:04
PROVIDERS: ATTEND Nurse Practitioner Adult Health
DX: I11.0 Hypertensive heart disease with heart failure (principal); Z98.890 Other specified postprocedural states; R73.01 Impaired fasting glucose; E55.9 Vitamin D deficiency, unspecified; E53.8 Deficiency of other specified B group vitamins; I50.9 Heart failure, unspecified

== ENCOUNTER → 2020-08-20 | Outpatient (CLI) | payer OTHER ==
[~2020-08-20] MED LIST changes: +PROHANCE 279.3MG/ML 15ML VIAL As Ordered ONE; +PROHANCE 279.3MG/ML 5ML VIAL As Ordered ONE
--- NOTE | 2020-08-20 17:29 | REP ---
INDICATION: FIBROGLANDULAR DENSITIES high risk breast cancer screening. MalJonathankhadar lifetime breast cancer risk score 20.5%. COMPARISON: Comparison breast MRI study 30 November 2019. Comparison marker feet January 07, 2020. TECHNIQUE: Three Briseida MRI imaging was performed with a dedicated breast coil. Axial, coronal, and sagittal T1 and T2 weighted scans were obtained with and without fat saturation in the usual fashion. The study includes dynamically acquired post gadolinium-enhanced imaging with image subtraction. Maximum intensity projection and multi planar reformation imaging is included as well. This study is interpreted with the aid of [employer], an FDA approved computer aided detection (CAD) software program, on a dedicated breast MRI workstation. The gadolinium enhancement dose is 20 mL of intravenous ProHance. FINDINGS: Scattered fibroglandular elements are noted bilaterally. There is no evidence of axillary adenopathy or significant breast cystic change on either side. Previously noted right sided epicardial cyst is again seen unchanged in the mediastinum. This measures 4 centimeters. High-resolution T1 and T2-weighted pre and post contrast images show no suspicious morphologic abnormality in either breast. There is a mild pattern of background parenchymal enhancement. Dynamically acquired sequential postcontrast images show no suspicious area of enhancement and washout in either breast to suggest malignancy. Subtraction images show no additional abnormality. IMPRESSION: Stable BI-RADS category 2 benign findings. Epicardial cyst. Otherwise negative. Patients whose lifetime breast cancer risk assessment score is greater than 20 percent merit annual screening of breast MRI scanning in addition to annual screening mammography. <Electronically signed by Tano King > 08/20/20 1325
== END ==
LOC: M RAD 14:49
PROVIDERS: ATTEND Nurse Practitioner Adult Health
DX: R92.8 Other abnormal and inconclusive findings on diagnostic imaging of breast (principal)
CPT/HCPCS: A9576; C8908

== ENCOUNTER → 2020-11-20 | Outpatient (REF) | payer OTHER ==
[~2020-11-20] MED LIST changes: +ESCI10TA16 OR; -ESCI10TA2 OR; -PROHANCE 279.3MG/ML 15ML VIAL As Ordered ONE; -PROHANCE 279.3MG/ML 5ML VIAL As Ordered ONE
[2020-11-20 13:44] LABS: HEMATOCRIT 45.2 % (36.0-47.0); HEMOGLOBIN 13.4 g/dl (12.0-15.5); MEAN CORPUSCULAR HEMOGLOBIN 27.5 pg (27.0-33.0); MEAN CORPUSCULAR HGB CONC 29.6 g/dl (32.0-36.5); MEAN CORPUSCULAR VOLUME 92.6 fl (80.0-96.0); PLATELET COUNT, AUTOMATED 239 10^3/uL (150-450); RED BLOOD COUNT 4.88 10^6/uL (4.00-5.40); WHITE BLOOD COUNT 6.8 10^3/uL (4.0-10.0)
[2020-11-20 14:11] LABS: ALBUMIN 3.6 GM/DL (3.2-5.2); ALT/SGPT 22 U/L (12-78); BILIRUBIN,TOTAL 0.3 MG/DL (0.2-1.0); BLOOD UREA NITROGEN 11 MG/DL (7-18); CALCIUM LEVEL 8.9 MG/DL (8.5-10.1); CARBON DIOXIDE LEVEL 26 MEQ/L (21-32); CHLORIDE LEVEL 107 MEQ/L (98-107); CHOLESTEROL LEVEL 195 MG/DL (<200); CHOLESTEROL RISK RATIO 4.875 (<5); CREATININE FOR GFR 0.79 MG/DL (0.55-1.30); FERRITIN 14 NG/ML (8-252); GLOMERULAR FILTRATION RATE > 60.0 (>51); GLUCOSE, FASTING 88 MG/DL (70-100); HDL CHOLESTEROL 40 MG/DL (>40); IRON (FE) 44 UG/DL (50-170); LDL CHOLESTEROL 103 MG/DL (<100); NON-HDL-C 155 MG/DL; PERCENT SATURATION 14.2 % (13.2-45.0); POTASSIUM SERUM 4.4 MEQ/L (3.5-5.1); SODIUM LEVEL 139 MEQ/L (136-145); TOTAL IRON BINDING CAPACITY 309 UG/DL (250-450); TOTAL PROTEIN 6.5 GM/DL (6.4-8.2); TRIGLYCERIDES LEVEL 260 MG/DL (<150)
[2020-11-20 14:31] LABS: TOTAL 25(OH) VITAMIN D 16.6 NG/ML (30.0-100.0)
[2020-11-20 22:56] LABS: HEMOGLOBIN A1c 5.5 %
== END ==
LOC: M SFHCPLAZ 11:04
PROVIDERS: ATTEND Nurse Practitioner Adult Health
DX: Z00.00 Encounter for general adult medical examination without abnormal findings (principal); Z98.890 Other specified postprocedural states; R73.01 Impaired fasting glucose; E55.9 Vitamin D deficiency, unspecified; E78.2 Mixed hyperlipidemia; I11.9 Hypertensive heart disease without heart failure

== ENCOUNTER → 2021-01-07 | Outpatient (CLI) | payer OTHER ==
[~2021-01-07] MED LIST changes: +SIME80CH5 PO; -SIME80TA PO
--- NOTE | 2021-01-07 11:33 | REPMRS ---
Patient History The patient states she has not had a clinical breast exam in over a year. Family history of breast cancer under age 50 in sister, colorectal cancer in maternal grandmother. No Hormone Replacement Therapy 3D TOMOSYNTHESIS WAS PERFORMED. Volpara breast density b. Digital Woman Screen Mammo: January 07, 2021 - Exam #: [id number] Bilateral CC and MLO view(s) were taken. Technologist: Katie Hanson, Technologist Prior study comparison: January 07, 2020, bilateral digital woman screen mammo performed at [facility] [place] [facility]. November 16, 2018, bilateral digital mammo screening bilat, performed at [facility]. FINDINGS: There are scattered fibroglandular densities. There has been no change in the appearance of the mammogram from the prior studies. There is a mild amount of residual fibroglandular tissue which is fairly symmetric. There is no interval development of dominant mass, architectural distortion, or clustered microcalcification suggestive of malignancy. Assessment: BI-RADS/ACR category 1 mammogram. Negative Mammogram. Recommendation Routine screening mammogram in 1 year (for women over age 40). This mammogram was interpreted with the aid of an FDA-approved computer-aided dectection system. THE LIFETIME RISK OF BREAST CANCER IS 20.0%, THEREFORE SUPPLEMENTAL SCREENING MRI OF THE BREASTS IS RECOMMENDED IN 6 MONTHS. Electronically Signed By: Cruz Perrin MD 01/07/21 [id number]
== END ==
LOC: M WHC 09:21
PROVIDERS: ATTEND Nurse Practitioner Adult Health
DX: Z12.31 Encounter for screening mammogram for malignant neoplasm of breast (principal); Z80.3 Family history of malignant neoplasm of breast

== ENCOUNTER → 2021-06-10 | Outpatient (CLI) | payer OTHER ==
[2021-06-10 13:51] LABS: HEMATOCRIT 41.6 % (36.0-47.0); HEMOGLOBIN 13.1 g/dl (12.0-15.5); MEAN CORPUSCULAR HEMOGLOBIN 26.8 pg (27.0-33.0); MEAN CORPUSCULAR HGB CONC 31.5 g/dl (32.0-36.5); MEAN CORPUSCULAR VOLUME 85.1 fl (80.0-96.0); PLATELET COUNT, AUTOMATED 276 10^3/uL (150-450); RED BLOOD COUNT 4.89 10^6/uL (4.00-5.40); WHITE BLOOD COUNT 7.3 10^3/uL (4.0-10.0)
[2021-06-10 14:18] LABS: HEMOGLOBIN A1c 5.7 %
[2021-06-10 15:02] LABS: ALBUMIN 3.7 GM/DL (3.2-5.2); ALT/SGPT 33 U/L (12-78); BILIRUBIN,TOTAL 0.3 MG/DL (0.2-1.0); BLOOD UREA NITROGEN 10 MG/DL (7-18); CALCIUM LEVEL 9.1 MG/DL (8.5-10.1); CARBON DIOXIDE LEVEL 27 MEQ/L (21-32); CHLORIDE LEVEL 107 MEQ/L (98-107); CHOLESTEROL LEVEL 229 MG/DL (<200); CHOLESTEROL RISK RATIO 6.026 (<5); CREATININE FOR GFR 0.61 MG/DL (0.55-1.30); FERRITIN 14 NG/ML (8-252); GLOMERULAR FILTRATION RATE > 60.0 (>51); GLUCOSE, FASTING 108 MG/DL (70-100); HDL CHOLESTEROL 38 MG/DL (>40); IRON (FE) 48 UG/DL (50-170); LDL CHOLESTEROL 116 MG/DL (<100); NON-HDL-C 191 MG/DL; PERCENT SATURATION 13.8 % (13.2-45.0); POTASSIUM SERUM 4.2 MEQ/L (3.5-5.1); SODIUM LEVEL 139 MEQ/L (136-145); TOTAL 25(OH) VITAMIN D 19.4 NG/ML (30.0-100.0); TOTAL IRON BINDING CAPACITY 348 UG/DL (250-450); TRIGLYCERIDES LEVEL 373 MG/DL (<150); VITAMIN B12 LEVEL 340 PG/ML (247-911)
== END ==
LOC: M PLALAB 09:53
PROVIDERS: ATTEND Nurse Practitioner Adult Health
DX: I11.0 Hypertensive heart disease with heart failure (principal); E53.8 Deficiency of other specified B group vitamins; E78.2 Mixed hyperlipidemia; R73.01 Impaired fasting glucose; E55.9 Vitamin D deficiency, unspecified; Z98.890 Other specified postprocedural states

== ENCOUNTER → 2022-01-07 | Outpatient (REF) | payer OTHER | LOC: M SFHCPLAZ 07:51 | PROVIDERS: ATTEND Nurse Practitioner Adult Health | DX: R30.0 Dysuria (principal); Z53.9 Procedure and treatment not carried out, unspecified reason ==

== ENCOUNTER → 2022-01-09 | Outpatient (CLI) | payer OTHER ==
[2022-01-09 09:24] LABS: HEMATOCRIT 40.4 % (36.0-47.0); HEMOGLOBIN 12.8 g/dl (12.0-15.5); MEAN CORPUSCULAR HEMOGLOBIN 26.7 pg (27.0-33.0); MEAN CORPUSCULAR HGB CONC 31.7 g/dl (32.0-36.5); MEAN CORPUSCULAR VOLUME 84.2 fl (80.0-96.0); PLATELET COUNT, AUTOMATED 270 10^3/uL (150-450); WHITE BLOOD COUNT 6.1 10^3/uL (4.0-10.0)
[2022-01-09 09:48] LABS: ALBUMIN 3.3 GM/DL (3.2-5.2); ALT/SGPT 23 U/L (12-78); BILIRUBIN,TOTAL 0.6 MG/DL (0.2-1.0); BLOOD UREA NITROGEN 15 MG/DL (7-18); CALCIUM LEVEL 8.8 MG/DL (8.5-10.1); CARBON DIOXIDE LEVEL 29 MEQ/L (21-32); CHLORIDE LEVEL 107 MEQ/L (98-107); CREATININE FOR GFR 0.67 MG/DL (0.55-1.30); FERRITIN 23 NG/ML (8-252); GLOMERULAR FILTRATION RATE > 60.0 (>51); GLUCOSE, FASTING 98 MG/DL (70-100); IRON (FE) 45 UG/DL (50-170); PERCENT SATURATION 15.6 % (13.2-45.0); POTASSIUM SERUM 3.9 MEQ/L (3.5-5.1); SODIUM LEVEL 141 MEQ/L (136-145); TOTAL IRON BINDING CAPACITY 289 UG/DL (250-450); TOTAL PROTEIN 6.4 GM/DL (6.4-8.2)
[2022-01-09 10:14] LABS: HEMOGLOBIN A1c 5.6 %
[2022-01-12 14:14] LABS: TOTAL 25(OH) VITAMIN D 16.6 NG/ML (30.0-100.0); VITAMIN B12 LEVEL 302 PG/ML (247-911)
== END ==
LOC: M LAB 08:43
PROVIDERS: ATTEND Nurse Practitioner Adult Health
DX: R73.01 Impaired fasting glucose (principal); E55.9 Vitamin D deficiency, unspecified; I11.0 Hypertensive heart disease with heart failure; E53.8 Deficiency of other specified B group vitamins; Z98.890 Other specified postprocedural states; E78.2 Mixed hyperlipidemia

== ENCOUNTER → 2022-04-02 | Outpatient (CLI) | payer MEDICAID, OTHER | LOC: M WHC 06:56 | PROVIDERS: ATTEND Nurse Practitioner Adult Health | DX: Z12.31 Encounter for screening mammogram for malignant neoplasm of breast (principal); N63.14 Unspecified lump in the right breast, lower inner quadrant ==

== ENCOUNTER 2022-05-09 23:16 | Emergency (ER) | payer OTHER ==
[~2022-05-09] VITALS: Ht 170.2 cm; Wt 129.7 kg
[2022-05-10 01:45] VITALS: BP 160/83
[2022-05-10] MEDS ORDERED: POLYSOL OP (01:54)
[2022-05-10] MEDS ORDERED: POLYTRIM OPTH DROPS 10ML OD ONE (06:00)
== END 2022-05-10 02:14 | disposition home or self-care (01) ==
LOC: M ED 23:16
DX: H10.31 Unspecified acute conjunctivitis, right eye (principal); E11.9 Type 2 diabetes mellitus without complications; I10 Essential (primary) hypertension; E78.5 Hyperlipidemia, unspecified; F33.9 Major depressive disorder, recurrent, unspecified; F41.9 Anxiety disorder, unspecified; Z98.84 Bariatric surgery status; Z79.899 Other long term (current) drug therapy; Z88.1 Allergy status to other antibiotic agents; Z88.2 Allergy status to sulfonamides; Z91.030 Bee allergy status; F17.200 Nicotine dependence, unspecified, uncomplicated

== ENCOUNTER → 2022-05-26 | Outpatient (CLI) | payer OTHER ==
[~2022-05-26] MED LIST changes: +POLYSOL OP
== END ==
LOC: M WHC 07:26
PROVIDERS: ATTEND Nurse Practitioner Adult Health
DX: R92.8 Other abnormal and inconclusive findings on diagnostic imaging of breast (principal); N63.23 Unspecified lump in the left breast, lower outer quadrant

== ENCOUNTER → 2022-10-13 | Outpatient (CLI) | payer OTHER ==
[~2022-10-13] MED LIST changes: +ALAW0.02 OD; +ARNU1INH3 IN; +CALCCAP4 PO; +ERGO500029 PO; +MONT10TA97 PO; +TORS20TA2 PO; +VENTAER INH; +VITA500064 PO; +VITMTA PO
== END ==
LOC: M LABSMTC 09:15
PROVIDERS: ATTEND Anesthesiology
DX: Z01.812 Encounter for preprocedural laboratory examination (principal); Z11.52 Encounter for screening for COVID-19

== ENCOUNTER 2022-10-18 06:42 | Day surgery (SDC) | payer OTHER ==
[~2022-10-18] VITALS: Ht 170.2 cm; Wt 124.6 kg
[~2022-10-18 06:42] MED LIST changes: +NS 1,000 ML IV ONE; -PAXI10TA12 PO; +PAXI10TA13 PO
[2022-10-18] MEDS ORDERED: TORS20TA2 PO (07:22)
[2022-10-18] MEDS ORDERED: VITMTA PO (07:22)
[2022-10-18] MEDS ORDERED: NYST-13 TOP (07:22)
[2022-10-18] MEDS ORDERED: OSTE1TAB2 PO (07:22)
[2022-10-18] MEDS ORDERED: ARNU1INH PO (07:22)
[2022-10-18] MEDS ORDERED: FOLTTAB9 PO (07:22)
[2022-10-18] MEDS ORDERED: SING10TA32 PO (07:22)
[2022-10-18] MEDS ORDERED: CALCCAP4 PO (07:22)
[2022-10-18] MEDS ORDERED: VENTAER INH (07:22)
[2022-10-18] MEDS ORDERED: ALAW0.02 OP (07:22)
[2022-10-18] MEDS ORDERED: gentle iron PO (07:22)
[2022-10-18 08:20] VITALS: BP 169/84
== END 2022-10-18 08:27 | disposition home or self-care (01) ==
LOC: M OPP 06:42
PROVIDERS: ATTEND Internal Medicine Gastroenterology
DX: Z12.11 Encounter for screening for malignant neoplasm of colon (principal); Z86.010 Personal history of colon polyps; D12.6 Benign neoplasm of colon, unspecified; K64.0 First degree hemorrhoids; F17.200 Nicotine dependence, unspecified, uncomplicated; Z79.51 Long term (current) use of inhaled steroids; Z79.899 Other long term (current) drug therapy; Z88.2 Allergy status to sulfonamides; Z91.030 Bee allergy status; G47.30 Sleep apnea, unspecified; Z99.89 Dependence on other enabling machines and devices; I10 Essential (primary) hypertension; E78.00 Pure hypercholesterolemia, unspecified; F32.9 Major depressive disorder, single episode, unspecified; F41.9 Anxiety disorder, unspecified; J45.909 Unspecified asthma, uncomplicated; M19.90 Unspecified osteoarthritis, unspecified site; Z90.49 Acquired absence of other specified parts of digestive tract; Z98.84 Bariatric surgery status; Z80.3 Family history of malignant neoplasm of breast

== ENCOUNTER → 2023-01-11 | Outpatient (CLI) | payer OTHER ==
[~2023-01-11] MED LIST changes: +ALAW0.02 OP; +ARNU1INH PO; +FOLTTAB9 PO; +MONT-5 PO; -NS 1,000 ML IV ONE; +NYST-13 TOP; +OSTE1TAB2 PO; +gentle iron PO
[2023-01-11 10:42] LABS: HEMATOCRIT 39.7 % (36.0-47.0); HEMOGLOBIN 12.4 g/dl (12.0-15.5); MEAN CORPUSCULAR HEMOGLOBIN 26.4 pg (27.0-33.0); MEAN CORPUSCULAR HGB CONC 31.2 g/dl (32.0-36.5); MEAN CORPUSCULAR VOLUME 84.6 fl (80.0-96.0); PLATELET COUNT, AUTOMATED 266 10^3/uL (150-450); RED BLOOD COUNT 4.69 10^6/uL (4.00-5.40); WHITE BLOOD COUNT 7.3 10^3/uL (4.0-10.0)
[2023-01-11 11:09] LABS: ALBUMIN 3.3 G/DL (3.2-5.2); ALKALINE PHOSPHATASE 94 U/L (46-116); ALT/SGPT 20 U/L (7.0-40); AST/SGOT 15 U/L (<34); BILIRUBIN,TOTAL 0.2 MG/DL (0.3-1.2); BLOOD UREA NITROGEN 16 MG/DL (9-23); CALCIUM LEVEL 8.5 MG/DL (8.5-10.1); CARBON DIOXIDE LEVEL 30 MMOL/L (20-31); CHLORIDE LEVEL 105 MMOL/L (98-107); CHOLESTEROL LEVEL 179 MG/DL (<200); CHOLESTEROL RISK RATIO 4.34 (<5); CREATININE FOR GFR 0.71 MG/DL (0.55-1.30); GLOMERULAR FILTRATION RATE > 60.0 (>51); GLUCOSE, FASTING 105 MG/DL (60-100); HDL CHOLESTEROL 41.2 MG/DL (>40); LDL CHOLESTEROL 91.8 MG/DL (<100); NON-HDL-C 138 MG/DL; POTASSIUM SERUM 4.8 MMOL/L (3.5-5.1); SODIUM LEVEL 140 MMOL/L (136-145); TOTAL PROTEIN 6.2 G/DL (5.7-8.2); TRIGLYCERIDES LEVEL 230 MG/DL (<150)
[2023-01-11 11:12] LABS: FERRITIN 9.3 NG/ML (7.3-270.7); TOTAL 25(OH) VITAMIN D 20.5 NG/ML (20.0-100.0)
[2023-01-11 11:15] LABS: VITAMIN B12 LEVEL 253 PG/ML (211-911)
[2023-01-11 11:38] LABS: HEMOGLOBIN A1c 5.6 % (4.0-6.0)
== END ==
LOC: M PLALAB 08:28
PROVIDERS: ATTEND Nurse Practitioner Adult Health
DX: R73.01 Impaired fasting glucose (principal)

== ENCOUNTER → 2023-02-11 | Outpatient (CLI) | payer OTHER ==
[~2023-02-11] MED LIST changes: +ARTIDRO4 OU; -POLYOPD OU
== END ==
LOC: M CARPUL 14:13
PROVIDERS: ATTEND Nurse Practitioner Adult Health
DX: I35.8 Other nonrheumatic aortic valve disorders (principal); I11.0 Hypertensive heart disease with heart failure

== ENCOUNTER 2023-03-17 13:10 | Emergency (ER) | payer OTHER ==
[~2023-03-17] VITALS: Ht 170.2 cm; Wt 124.5 kg
[~2023-03-17 13:10] MED LIST changes: -VITA500064 PO; +VITA500065 PO
[2023-03-17 13:12] VITALS: BP 171/97
== END 2023-03-17 14:44 | disposition home or self-care (01) ==
LOC: M ED 13:10
DX: R22.41 Localized swelling, mass and lump, right lower limb (principal); I50.20 Unspecified systolic (congestive) heart failure; G47.30 Sleep apnea, unspecified; Z98.84 Bariatric surgery status; F17.210 Nicotine dependence, cigarettes, uncomplicated; Z88.2 Allergy status to sulfonamides; Z91.030 Bee allergy status; Z79.899 Other long term (current) drug therapy; Z79.51 Long term (current) use of inhaled steroids

== ENCOUNTER → 2023-04-07 | Outpatient (REF) | payer OTHER | LOC: M SFHCDERM 12:34 | PROVIDERS: ATTEND Nurse Practitioner Family | DX: D17.24 Benign lipomatous neoplasm of skin and subcutaneous tissue of left leg (principal); D18.01 Hemangioma of skin and subcutaneous tissue ==

== ENCOUNTER → 2023-07-19 | Outpatient (CLI) | payer OTHER ==
[2023-07-19 10:44] LABS: HEMATOCRIT 40.1 % (36.0-47.0); HEMOGLOBIN 12.4 g/dl (12.0-15.5); MEAN CORPUSCULAR HEMOGLOBIN 25.6 pg (27.0-33.0); MEAN CORPUSCULAR HGB CONC 30.9 g/dl (32.0-36.5); MEAN CORPUSCULAR VOLUME 82.7 fl (80.0-96.0); PLATELET COUNT, AUTOMATED 287 10^3/uL (150-450); RED BLOOD COUNT 4.85 10^6/uL (4.00-5.40); WHITE BLOOD COUNT 5.5 10^3/uL (4.0-10.0)
[2023-07-19 11:22] LABS: TOTAL 25(OH) VITAMIN D 23.7 NG/ML (20.0-100.0)
[2023-07-19 11:23] LABS: IRON (FE) 49 UG/DL (50-170); TOTAL IRON BINDING CAPACITY 351 UG/DL (250-425)
[2023-07-19 11:24] LABS: ALBUMIN 3.5 G/DL (3.2-5.2); ALKALINE PHOSPHATASE 98 U/L (46-116); ALT/SGPT 19 U/L (7.0-40); AST/SGOT 11 U/L (<34); BILIRUBIN,TOTAL 0.3 MG/DL (0.3-1.2); BLOOD UREA NITROGEN 14 MG/DL (9-23); CARBON DIOXIDE LEVEL 27 MMOL/L (20-31); CHLORIDE LEVEL 105 MMOL/L (98-107); CHOLESTEROL LEVEL 182 MG/DL (<200); CHOLESTEROL RISK RATIO 4.55 (<5); CREATININE FOR GFR 0.67 MG/DL (0.55-1.30); GLOMERULAR FILTRATION RATE > 60.0 (>51); GLUCOSE, FASTING 103 MG/DL (60-100); LDL CHOLESTEROL 99.6 MG/DL (<100); POTASSIUM SERUM 4.3 MMOL/L (3.5-5.1); SODIUM LEVEL 140 MMOL/L (136-145); TOTAL PROTEIN 6.5 G/DL (5.7-8.2); TRIGLYCERIDES LEVEL 212 MG/DL (<150)
== END ==
LOC: M PLALAB 08:42
PROVIDERS: ATTEND Nurse Practitioner Adult Health
DX: Z98.890 Other specified postprocedural states (principal); E78.2 Mixed hyperlipidemia; I11.0 Hypertensive heart disease with heart failure; E55.9 Vitamin D deficiency, unspecified

== ENCOUNTER → 2023-08-09 | Outpatient (REF) | payer OTHER | LOC: M SFHCDERM 14:32 | PROVIDERS: ATTEND Nurse Practitioner Family | DX: D36.11 Benign neoplasm of peripheral nerves and autonomic nervous system of face, head, and neck (principal); D22.4 Melanocytic nevi of scalp and neck ==

== ENCOUNTER → 2023-08-10 | Outpatient (CLI) | payer OTHER | LOC: M WHC 06:46 | PROVIDERS: ATTEND Nurse Practitioner Adult Health | DX: Z12.31 Encounter for screening mammogram for malignant neoplasm of breast (principal) ==

== ENCOUNTER → 2024-02-10 | Outpatient (CLI) | payer OTHER | LOC: M SOG 08:06 | PROVIDERS: ATTEND Physician Assistant | DX: M25.561 Pain in right knee (principal); M17.11 Unilateral primary osteoarthritis, right knee ==

== ENCOUNTER 2024-04-26 13:22 | Emergency (ER) | payer OTHER ==
[~2024-04-26] VITALS: Ht 172.7 cm; Wt 127.3 kg
[2024-04-26 15:22] LABS: BASO # 0.1 10^3/uL (0.0-0.2); BASO % 0.6 % (0.0-1.0); EOS # 0.1 10^3/uL (0.0-0.5); EOS % 1.7 % (0.0-3.0); HEMATOCRIT 40.5 % (36.0-47.0); HEMOGLOBIN 12.8 g/dl (12.0-15.5); LYMPH # 1.8 10^3/uL (1.5-5.0); LYMPH % 21.7 % (24.0-44.0); MEAN CORPUSCULAR HEMOGLOBIN 25.6 pg (27.0-33.0); MEAN CORPUSCULAR HGB CONC 31.6 g/dl (32.0-36.5); MONO # 0.5 10^3/uL (0.0-0.8); MONO % 6.2 % (2.0-8.0); NEUTROPHILS # 5.6 10^3/uL (1.5-8.5); NEUTROPHILS % 69.4 % (36.0-66.0); PLATELET COUNT, AUTOMATED 360 10^3/uL (150-450); WHITE BLOOD COUNT 8.1 10^3/uL (4.0-10.0)
[2024-04-26 15:34] LABS: INR 1.06; PARTIAL THROMBOPLASTIN TIME 23.4 SECONDS (24.8-34.2); PROTHROMBIN TIME 13.5 SECONDS (12.5-14.5)
[2024-04-26 15:37] LABS: ERYTHROCYTE SEDIMENTATION RATE 52 mm/hr (0-30)
[2024-04-26 15:48] LABS: LIPASE 38 U/L (12-53)
[2024-04-26 15:50] LABS: ALBUMIN 3.4 G/DL (3.2-5.2); ALKALINE PHOSPHATASE 103 U/L (46-116); ALT/SGPT 22 U/L (7.0-40); AST/SGOT 16 U/L (<34); BILIRUBIN,DIRECT < 0.1 MG/DL (<0.4); BILIRUBIN,TOTAL 0.2 MG/DL (0.3-1.2); BLOOD UREA NITROGEN 7 MG/DL (9-23); CALCIUM LEVEL 9.1 MG/DL (8.5-10.1); CARBON DIOXIDE LEVEL 27 MMOL/L (20-31); CHLORIDE LEVEL 104 MMOL/L (98-107); CK-MB VALUE MASS 3.3 NG/ML (<3.6); CPK CREATINE PHOSPHOKINASE 184 U/L (34-145); GLOMERULAR FILTRATION RATE > 60.0 (>51); GLUCOSE, FASTING 138 MG/DL (60-100); MB/CK RELATIVE INDEX 1.79 (< OR =4); SODIUM LEVEL 136 MMOL/L (136-145); TOTAL PROTEIN 6.3 G/DL (5.7-8.2)
[2024-04-26 15:52] VITALS: BP 169/81; TEMP 97.5; O2SAT 95
[2024-04-26 15:54] LABS: FREE T4 1.24 NG/DL (0.89-1.76)
[2024-04-26] MEDS ORDERED: COMP1EAC MC (16:17)
== END 2024-04-26 16:26 | disposition home or self-care (01) ==
LOC: M ED 13:22
DX: R22.43 Localized swelling, mass and lump, lower limb, bilateral (principal); Z91.148 Patient's other noncompliance with medication regimen for other reason; I10 Essential (primary) hypertension; E78.5 Hyperlipidemia, unspecified; J44.9 Chronic obstructive pulmonary disease, unspecified; J45.909 Unspecified asthma, uncomplicated; F41.9 Anxiety disorder, unspecified; F32.9 Major depressive disorder, single episode, unspecified; Z88.2 Allergy status to sulfonamides; Z91.030 Bee allergy status

== ENCOUNTER 2024-04-30 21:02 | Inpatient (IN) | payer MEDICAID, OTHER ==
[~2024-04-30] VITALS: Ht 170.2 cm; Wt 110.6 kg
[~2024-04-30 21:02] MED LIST changes: +COMP1EAC MC
[2024-04-30] MEDS ORDERED: VENTAER (21:16)
[2024-04-30] MEDS ORDERED: ARNU1INH3 (21:16)
[2024-04-30] MEDS ORDERED: MONT10TA97 (21:16)
[2024-04-30] MEDS ORDERED: TORS20TA2 (21:16)
[2024-04-30] MEDS ORDERED: ERGO500029 (21:16)
[2024-04-30 21:34] LABS: HEMATOCRIT 44.2 % (36.0-47.0); HEMOGLOBIN 14.5 g/dl (12.0-15.5); MEAN CORPUSCULAR HEMOGLOBIN 25.7 pg (27.0-33.0); MEAN CORPUSCULAR HGB CONC 32.8 g/dl (32.0-36.5); MEAN CORPUSCULAR VOLUME 78.2 fl (80.0-96.0); PLATELET COUNT, AUTOMATED 473 10^3/uL (150-450); RED BLOOD COUNT 5.65 10^6/uL (4.00-5.40); WHITE BLOOD COUNT 14.3 10^3/uL (4.0-10.0)
[2024-04-30 22:01] LABS: ETHYL ALCOHOL (ETHANOL) < 0.003 % (0.000-0.010)
[2024-04-30 22:02] LABS: SALICYLATE LEVEL < 3.0 MG/DL (<30)
[2024-04-30 22:03] LABS: ALKALINE PHOSPHATASE 119 U/L (46-116); ALT/SGPT 26 U/L (7.0-40); AST/SGOT 24 U/L (<34); BILIRUBIN,DIRECT 0.1 MG/DL (<0.4); BILIRUBIN,TOTAL 0.5 MG/DL (0.3-1.2); BLOOD UREA NITROGEN 13 MG/DL (9-23); CALCIUM LEVEL 9.6 MG/DL (8.5-10.1); CARBON DIOXIDE LEVEL 34 MMOL/L (20-31); CHLORIDE LEVEL 88 MMOL/L (98-107); CREATININE FOR GFR 0.87 MG/DL (0.55-1.30); GLOMERULAR FILTRATION RATE > 60.0 (>51); GLUCOSE, FASTING 116 MG/DL (60-100); POTASSIUM SERUM 3.6 MMOL/L (3.5-5.1); SODIUM LEVEL 129 MMOL/L (136-145); TOTAL PROTEIN 7.3 G/DL (5.7-8.2)
[2024-04-30 22:05] LABS: THYROID STIMULATING HORMONE 3.668 uIU/ML (0.55-4.78)
[2024-04-30 22:13] LABS: FREE T4 1.55 NG/DL (0.89-1.76)
[2024-04-30 22:35] VITALS: BP 179/110
[2024-04-30] MEDS: amLODIPine 5 MG TAB PO ONE (22:35)
[2024-04-30] MEDS: NICOTINE 21MG/24HR 1 EA TRANSDERMAL TD ONE (22:35)
[2024-04-30 23:15] LABS: AMPHETAMINES LEVEL URINE NEGATIVE (NEGATIVE); BARBITURATES URINE NEGATIVE (NEGATIVE); BENZODIAZEPINES URINE NEGATIVE (NEGATIVE); CANNABINOIDS URINE NEGATIVE (NEGATIVE); COCAINE METABOLITE URINE NEGATIVE (NEGATIVE); METHADONE URINE NEGATIVE (NEGATIVE); OPIATES URINE NEGATIVE (NEGATIVE); PHENCYCLIDINE URINE NEGATIVE (NEGATIVE)
[2024-05-01 02:24] LABS: APPEARANCE, URINE HAZY (CLEAR); BACTERIA, URINE AUTO 1+ (NEGATIVE); BILIRUBIN, URINE AUTO NEGATIVE (NEGATIVE); BLOOD, URINE BLOOD NEGATIVE (NEGATIVE); COLOR, URINE YELLOW (YELLOW); GLUCOSE, URINE (UA) AUTO NEGATIVE (NEGATIVE); KETONE, URINE AUTO NEGATIVE (NEGATIVE); LEUKOCYTE ESTERASE, URINE AUTO TRACE (NEGATIVE); MUCUS, URINE SMALL (NEGATIVE); NITRITE, URINE AUTO NEGATIVE (NEGATIVE); PROTEIN, URINE AUTO NEGATIVE (NEGATIVE); RBC, URINE AUTO 0 /HPF (0-3); SQUAMOUS EPITHELIAL CELL UR AU 11 /HPF (0-6); WBC, URINE AUTO 4 /HPF (0-3)
[2024-05-01 03:34] LABS: CREATININE,RANDOM URINE 72.4 MG/DL
[2024-05-01] MEDS ORDERED: ARNU1INH3 INH (06:00)
[2024-05-01] MEDS ORDERED: MONT10TA97 PO (06:00)
[2024-05-01] MEDS ORDERED: ALBU8.5H INH (06:00)
[2024-05-01] MEDS ORDERED: MUPI2OI EXT (06:02)
[2024-05-01] MEDS ORDERED: HOME MED LIST COMPLETE! XX SCH (06:05)
[2024-05-01] MEDS: TORSEMIDE 20 MG TAB PO SCH (08:18)
[2024-05-01] MEDS: MONTELUKAST 10 MG TAB PO SCH (21:27)
[2024-05-02] MEDS ORDERED: MAALOX 30 ML SUSP *UDC PO PRN (15:15)
[2024-05-02] MEDS ORDERED: traZODone 50 MG TAB PO PRN (15:15)
[2024-05-02] MEDS ORDERED: diphenhydrAMINE 25MG CAP PO PRN (15:15)
[2024-05-02] MEDS ORDERED: MOM 30ML SUSPENSION UDC PO PRN (15:15)
[2024-05-03 06:43] VITALS: BP 124/78; TEMP 97.4; O2SAT 93
[2024-05-03 09:49] LABS: HEMATOCRIT 47.2 % (36.0-47.0); HEMOGLOBIN 15.1 g/dl (12.0-15.5); MEAN CORPUSCULAR HEMOGLOBIN 25.5 pg (27.0-33.0); MEAN CORPUSCULAR VOLUME 79.6 fl (80.0-96.0); PLATELET COUNT, AUTOMATED 425 10^3/uL (150-450); RED BLOOD COUNT 5.93 10^6/uL (4.00-5.40); WHITE BLOOD COUNT 9.9 10^3/uL (4.0-10.0)
[2024-05-03] MEDS ORDERED: IPRATROPIUM 0.5MG/ALBUTEROL 2.5MG INH SOL UD 3ML (DUONEB) NEB PRN (10:00)
[2024-05-03 10:16] LABS: IRON (FE) 52 UG/DL (50-170); PERCENT SATURATION 13.8 % (13.2-45.0); TOTAL IRON BINDING CAPACITY 376 UG/DL (250-425)
[2024-05-03 10:18] LABS: FERRITIN 10.5 NG/ML (7.3-270.7)
[2024-05-03 10:19] LABS: FOLATE 6.87 NG/ML (>5.4); VITAMIN B12 LEVEL 376 PG/ML (211-911)
[2024-05-03] MEDS ORDERED: OLANZapine ORAL DISINTEGRATING TAB 5MG PO PRN (10:20)
[2024-05-03 10:22] LABS: BLOOD UREA NITROGEN 21 MG/DL (9-23); CALCIUM LEVEL 9.6 MG/DL (8.5-10.1); CARBON DIOXIDE LEVEL 40 MMOL/L (20-31); CHLORIDE LEVEL 92 MMOL/L (98-107); CREATININE FOR GFR 0.88 MG/DL (0.55-1.30); GLOMERULAR FILTRATION RATE > 60.0 (>51); GLUCOSE, FASTING 137 MG/DL (60-100); POTASSIUM SERUM 3.1 MMOL/L (3.5-5.1); SODIUM LEVEL 136 MMOL/L (136-145)
[2024-05-03] MEDS: ALBUTEROL 90 MCG/ACT 8GM HFA INHALER INH PRN (10:47)
[2024-05-03] MEDS: FERROUS SULFATE 325MG TAB PO SCH (10:47)
[2024-05-03] MEDS: POTASSIUM CHLORIDE 10MEQ SR TABLET PO ONE (10:49)
[2024-05-03 11:45] VITALS: BP 116/75; TEMP 98.5; O2SAT 89
[2024-05-03] MEDS: TORSEMIDE 20 MG TAB PO SCH (13:42)
[2024-05-03] MEDS: FLUTICASONE HFA 220 MCG 12 GM INHALER (FLOVENT) INH SCH (13:42)
[2024-05-03] MEDS: MONTELUKAST 10 MG TAB PO SCH (20:42)
[2024-05-04 06:21] VITALS: BP 115/60; TEMP 98.5; O2SAT 93
[2024-05-04 08:42] LABS: CHOLESTEROL RISK RATIO 6.26 (<5); HDL CHOLESTEROL 36.4 MG/DL (>40); LDL CHOLESTEROL 138.8 MG/DL (<100); NON-HDL-C 191.6 MG/DL
[2024-05-04 16:31] VITALS: BP 115/81; TEMP 97.1; O2SAT 94
[2024-05-05 15:29] VITALS: BP 98/65; TEMP 97.5; O2SAT 97
[2024-05-06 06:01] VITALS: BP 127/82; TEMP 97.7; O2SAT 95
[2024-05-06 08:40] VITALS: BP 93/50; O2SAT 91
[2024-05-06] MEDS: ACETAMINOPHEN TAB 650MG DOSE (2X325MG) PO PRN (09:44)
[2024-05-06 16:09] VITALS: BP 110/70; TEMP 97.3; O2SAT 92
[2024-05-06 21:55] VITALS: BP 102/76
[2024-05-07 05:54] VITALS: BP 111/54; TEMP 98.3; O2SAT 94
[2024-05-07 09:43] VITALS: BP 122/78
[2024-05-07] MEDS: VITAMIN D 50,000 UNITS CAPSULE (ERGOCALCIFEROL 1.25MG) PO SCH (09:45)
[2024-05-07] MEDS ORDERED: NYSTATIN 100,000 UNITS/GM TOPICAL PWD 15GM TOP PRN (17:30)
[2024-05-07 18:46] VITALS: BP 127/88; TEMP 97.2
[2024-05-07 21:09] VITALS: BP 118/88
[2024-05-07] MEDS: ARIPiprazole 10 MG TAB PO SCH (21:12)
[2024-05-08 06:28] VITALS: BP 112/56; TEMP 98.5; O2SAT 94
[2024-05-08 09:13] VITALS: BP 103/80
[2024-05-08 11:46] LABS: BASO # 0.1 10^3/uL (0.0-0.2); BASO % 0.7 % (0.0-1.0); EOS # 0.3 10^3/uL (0.0-0.5); HEMATOCRIT 43.5 % (36.0-47.0); HEMOGLOBIN 14.2 g/dl (12.0-15.5); LYMPH # 1.6 10^3/uL (1.5-5.0); LYMPH % 18.2 % (24.0-44.0); MEAN CORPUSCULAR HEMOGLOBIN 26.1 pg (27.0-33.0); MEAN CORPUSCULAR HGB CONC 32.6 g/dl (32.0-36.5); MEAN CORPUSCULAR VOLUME 79.8 fl (80.0-96.0); NEUTROPHILS % 66.8 % (36.0-66.0); PLATELET COUNT, AUTOMATED 415 10^3/uL (150-450); RED BLOOD COUNT 5.45 10^6/uL (4.00-5.40)
[2024-05-08 12:12] LABS: BILIRUBIN,TOTAL 0.5 MG/DL (0.3-1.2); CALCIUM LEVEL 10.2 MG/DL (8.5-10.1); CREATININE FOR GFR 1.38 MG/DL (0.55-1.30); GLOMERULAR FILTRATION RATE 41.7 (>51); POTASSIUM SERUM 3.6 MMOL/L (3.5-5.1); TOTAL PROTEIN 7.2 G/DL (5.7-8.2)
[2024-05-08 12:19] LABS: PROCALCITONIN 0.16 ng/ml
[2024-05-08] MEDS: QUEtiapine FUMARATE 25 MG TAB PO SCH (21:16)
[2024-05-09 06:24] VITALS: BP 112/62; TEMP 98; O2SAT 94
[2024-05-09 09:06] VITALS: BP 104/68
[2024-05-09 18:27] VITALS: BP 138/83; TEMP 97.6
[2024-05-10 06:26] VITALS: BP 114/52; TEMP 98.9; O2SAT 92
[2024-05-10 15:38] VITALS: BP 110/72; TEMP 97.1; O2SAT 96
[2024-05-11 06:14] VITALS: BP 109/57; TEMP 98.2; O2SAT 94
[2024-05-11 15:48] VITALS: BP 108/66; TEMP 98.1; O2SAT 98
[2024-05-12 06:13] VITALS: BP 124/70; TEMP 98.6; O2SAT 100
[2024-05-12] MEDS: IBUPROFEN 400MG TAB PO PRN (11:31)
[2024-05-12 16:43] VITALS: BP 107/60; TEMP 97.5; O2SAT 97
[2024-05-13 06:06] VITALS: BP 100/56; TEMP 98.7; O2SAT 99
[2024-05-13 15:59] VITALS: BP 101/63; TEMP 97; O2SAT 97
[2024-05-14 07:06] VITALS: BP 108/62; TEMP 98.1; O2SAT 97
[2024-05-14 08:38] VITALS: BP 103/76
[2024-05-14] MEDS ORDERED: FERR1TAB8 PO (10:55)
[2024-05-14] MEDS ORDERED: ABIL10TA9 PO (10:55)
== END 2024-05-14 16:36 | disposition home or self-care (01) | DRG 753 ==
LOC: M ED 21:02 → M ED INP 05-02 15:12 → M PSY 05-02 17:57
PROVIDERS: ADMIT Student in an Organized Health Care Education/Training Program; ATTEND Student in an Organized Health Care Education/Training Program
DX: F31.9 Bipolar disorder, unspecified (principal); F60.3 Borderline personality disorder; F06.2 Psychotic disorder with delusions due to known physiological condition; R45.851 Suicidal ideations; F17.210 Nicotine dependence, cigarettes, uncomplicated; I10 Essential (primary) hypertension; E87.1 Hypo-osmolality and hyponatremia; E66.01 Morbid (severe) obesity due to excess calories; J45.909 Unspecified asthma, uncomplicated; G47.33 Obstructive sleep apnea (adult) (pediatric); D50.9 Iron deficiency anemia, unspecified; K21.9 Gastro-esophageal reflux disease without esophagitis; E11.9 Type 2 diabetes mellitus without complications; E55.9 Vitamin D deficiency, unspecified; J44.1 Chronic obstructive pulmonary disease with (acute) exacerbation; R10.13 Epigastric pain; N39.46 Mixed incontinence; Z79.899 Other long term (current) drug therapy; Z91.030 Bee allergy status; Z88.2 Allergy status to sulfonamides; Z90.49 Acquired absence of other specified parts of digestive tract; Z90.79 Acquired absence of other genital organ(s); Z98.84 Bariatric surgery status; Z56.0 Unemployment, unspecified

== ENCOUNTER → 2024-07-03 | Outpatient (REF) | payer MEDICAID, OTHER ==
[~2024-07-03] MED LIST changes: +ABIL10TA9 PO; +ALBU8.5H INH; +ARNU1INH3; +ARNU1INH3 INH; +ERGO500029; +FERR1TAB8 PO; +MONT10TA97; +MUPI2OI EXT; +TORS20TA2; +VENTAER
== END ==
LOC: M SFHCDERM 17:37
PROVIDERS: ATTEND Nurse Practitioner Family
DX: D18.01 Hemangioma of skin and subcutaneous tissue (principal)

== ENCOUNTER → 2024-07-19 | Outpatient (CLI) | payer MEDICAID, OTHER ==
[2024-07-19 10:03] LABS: HEMATOCRIT 38.6 % (36.0-47.0); HEMOGLOBIN 12.3 g/dl (12.0-15.5); MEAN CORPUSCULAR HEMOGLOBIN 27.8 pg (27.0-33.0); MEAN CORPUSCULAR HGB CONC 31.9 g/dl (32.0-36.5); MEAN CORPUSCULAR VOLUME 87.1 fl (80.0-96.0); PLATELET COUNT, AUTOMATED 349 10^3/uL (150-450); RED BLOOD COUNT 4.43 10^6/uL (4.00-5.40); WHITE BLOOD COUNT 7.7 10^3/uL (4.0-10.0)
[2024-07-19 10:31] LABS: TOTAL IRON BINDING CAPACITY 350 UG/DL (250-425)
[2024-07-19 10:32] LABS: ALBUMIN 3.7 G/DL (3.2-5.2); ALKALINE PHOSPHATASE 102 U/L (46-116); ALT/SGPT 17 U/L (7.0-40); AST/SGOT 15 U/L (<34); BILIRUBIN,TOTAL 0.3 MG/DL (0.3-1.2); BLOOD UREA NITROGEN 16 MG/DL (9-23); CALCIUM LEVEL 9.2 MG/DL (8.5-10.1); CARBON DIOXIDE LEVEL 34 MMOL/L (20-31); CHLORIDE LEVEL 101 MMOL/L (98-107); CHOLESTEROL LEVEL 222 MG/DL (<200); CHOLESTEROL RISK RATIO 4.76 (<5); CREATININE FOR GFR 0.89 MG/DL (0.55-1.30); GLOMERULAR FILTRATION RATE > 60.0 (>51); GLUCOSE, FASTING 79 MG/DL (60-100); HDL CHOLESTEROL 46.6 MG/DL (>40); IRON (FE) 53 UG/DL (50-170); LDL CHOLESTEROL 127.6 MG/DL (<100); MAGNESIUM LEVEL 2.2 MG/DL (1.8-2.4); NON-HDL-C 175.4 MG/DL; PERCENT SATURATION 15.1 % (13.2-45.0); POTASSIUM SERUM 3.4 MMOL/L (3.5-5.1); SODIUM LEVEL 140 MMOL/L (136-145); TOTAL PROTEIN 7.1 G/DL (5.7-8.2); TRIGLYCERIDES LEVEL 239 MG/DL (<150)
[2024-07-19 10:35] LABS: FERRITIN 18.3 NG/ML (7.3-270.7); TOTAL 25(OH) VITAMIN D 42.2 NG/ML (20.0-100.0)
[2024-07-19 10:36] LABS: THYROID STIMULATING HORMONE 2.324 uIU/ML (0.55-4.78)
[2024-07-19 10:37] LABS: VITAMIN B12 LEVEL 327 PG/ML (211-911)
[2024-07-19 10:38] LABS: HEMOGLOBIN A1c 5.8 % (4.0-6.0)
== END ==
LOC: M PLALAB 08:28
PROVIDERS: ATTEND Nurse Practitioner Adult Health
DX: Z00.00 Encounter for general adult medical examination without abnormal findings (principal); E61.1 Iron deficiency; R73.01 Impaired fasting glucose; E78.2 Mixed hyperlipidemia; I11.0 Hypertensive heart disease with heart failure; I50.9 Heart failure, unspecified; E53.8 Deficiency of other specified B group vitamins; E55.9 Vitamin D deficiency, unspecified; Z98.890 Other specified postprocedural states

== ENCOUNTER → 2025-05-13 | Outpatient (CLI) | payer OTHER ==
[~2025-05-13] MED LIST changes: +CARA1TAB6 PO; +CYAN-1 PO; +HYDR-3363 PO; -NYST-13 TOP; +NYST0.1C TOP; +OS-CTAB3 PO; +POTA-298 PO; +PROT1TAB2 PO; +QUET50TA4 PO; +RISP-106 PO; +ROPI5TAB19 PO; +SERT50TA29 PO; +SPIR50TA4 PO; +TRAZ-252 PO
[2025-05-13 16:35] LABS: ALT/SGPT 12 U/L (7.0-40); AST/SGOT 16 U/L (<34); CALCIUM LEVEL 8.7 MG/DL (8.3-10.6); CARBON DIOXIDE LEVEL 30 MMOL/L (20-31); CHLORIDE LEVEL 106 MMOL/L (98-107); CREATININE FOR GFR 0.71 MG/DL (0.55-1.30); GLOMERULAR FILTRATION RATE > 90.0 (>45); POTASSIUM SERUM 3.7 MMOL/L (3.5-5.1); SODIUM LEVEL 141 MMOL/L (136-145)
== END ==
LOC: M PLALAB 12:57
PROVIDERS: ATTEND Nurse Practitioner Adult Health
DX: I11.0 Hypertensive heart disease with heart failure (principal); E78.2 Mixed hyperlipidemia; I50.9 Heart failure, unspecified

== ENCOUNTER → 2025-05-23 | Outpatient (CLI) | payer OTHER ==
[2025-05-23 17:57] LABS: ALT/SGPT 23.0 U/L (7.0-40); AST/SGOT 37.0 U/L (<34); CALCIUM LEVEL 8.6 MG/DL (8.3-10.6); CARBON DIOXIDE LEVEL 31.0 MMOL/L (20-31); CHLORIDE LEVEL 91.0 MMOL/L (98-107); CREATININE FOR GFR 0.82 MG/DL (0.55-1.30); GLOMERULAR FILTRATION RATE 81.8 (>45); POTASSIUM SERUM 3.3 MMOL/L (3.5-5.1); SODIUM LEVEL 137.0 MMOL/L (136-145)
== END ==
LOC: M PLALAB 15:32
PROVIDERS: ATTEND Nurse Practitioner Adult Health
DX: I50.32 Chronic diastolic (congestive) heart failure (principal)

== ENCOUNTER → 2025-07-22 | Outpatient (CLI) | payer OTHER ==
[2025-07-22 10:38] LABS: PLATELET COUNT, AUTOMATED 476 10^3/uL (150-450)
[2025-07-22 10:58] LABS: ESTIMATED AVERAGE GLUCOSE 131.0 MG/DL (60-110)
[2025-07-22 11:08] LABS: FREE T4 1.32 NG/DL (0.89-1.76)
[2025-07-22 11:11] LABS: ALT/SGPT 23 U/L (7.0-40); AST/SGOT 34 U/L (<34); CALCIUM LEVEL 9.7 MG/DL (8.3-10.6); CARBON DIOXIDE LEVEL 27 MMOL/L (20-31); CHLORIDE LEVEL 104 MMOL/L (98-107); CHOLESTEROL LEVEL 261 MG/DL (<200); CHOLESTEROL RISK RATIO 7.17 (<5); CREATININE FOR GFR 1.07 MG/DL (0.55-1.30); GLOMERULAR FILTRATION RATE 59.5 (>45); MAGNESIUM LEVEL 2.4 MG/DL (1.8-2.4); NON-HDL-C 224.6 MG/DL; POTASSIUM SERUM 5.0 MMOL/L (3.5-5.1); SODIUM LEVEL 138 MMOL/L (136-145); TRIGLYCERIDES LEVEL 413 MG/DL (<150)
== END ==
LOC: M PLALAB 08:55
PROVIDERS: ATTEND Nurse Practitioner Adult Health
DX: I50.32 Chronic diastolic (congestive) heart failure (principal); E55.9 Vitamin D deficiency, unspecified; R73.01 Impaired fasting glucose; E61.1 Iron deficiency; E78.2 Mixed hyperlipidemia; Z98.890 Other specified postprocedural states

== ENCOUNTER 2025-08-13 21:49 | Inpatient (IN) | payer OTHER ==
[~2025-08-13] VITALS: Ht 172.7 cm; Wt 117.3 kg
[2025-08-13 22:29] LABS: PLATELET COUNT, AUTOMATED 500 10^3/uL (150-450)
[2025-08-13] MEDS: MIDAZOLAM INJ 2 MG/2 ML VIAL IM ONE (22:37)
[2025-08-13] MEDS: HALOPERIDOL LACTATE 5 MG/ML VIAL IM ONE (22:37)
[2025-08-13] MEDS: diphenhydrAMINE 50 MG/ML VIAL IM ONE (22:37)
[2025-08-13 22:55] LABS: AMPHETAMINES LEVEL URINE NEGATIVE (NEGATIVE)
[2025-08-13 22:56] LABS: BARBITURATES URINE NEGATIVE (NEGATIVE); BENZODIAZEPINES URINE NEGATIVE (NEGATIVE); CANNABINOIDS URINE NEGATIVE (NEGATIVE); COCAINE METABOLITE URINE NEGATIVE (NEGATIVE); METHADONE URINE NEGATIVE (NEGATIVE); OPIATES URINE NEGATIVE (NEGATIVE); PHENCYCLIDINE URINE NEGATIVE (NEGATIVE)
[2025-08-13 22:58] LABS: ETHYL ALCOHOL (ETHANOL) < 0.003 % (0.000-0.010)
[2025-08-13 22:59] LABS: SALICYLATE LEVEL < 3.0 MG/DL (<30)
[2025-08-13 23:00] LABS: ALT/SGPT 18 U/L (7.0-40); AST/SGOT 23 U/L (<34); CALCIUM LEVEL 9.8 MG/DL (8.3-10.6); CARBON DIOXIDE LEVEL 23 MMOL/L (20-31); CHLORIDE LEVEL 103 MMOL/L (98-107); CREATININE FOR GFR 0.89 MG/DL (0.55-1.30); GLOMERULAR FILTRATION RATE 74.2 (>45); POTASSIUM SERUM 3.9 MMOL/L (3.5-5.1); SODIUM LEVEL 139 MMOL/L (136-145)
[2025-08-14 00:44] LABS: AMORPHOUS SEDIMENT SMALL (NEGATIVE); APPEARANCE, URINE TURBID (CLEAR); BACTERIA, URINE AUTO 3+ (NEGATIVE); BILIRUBIN, URINE AUTO NEGATIVE (NEGATIVE); BLOOD, URINE BLOOD NEGATIVE (NEGATIVE); GLUCOSE, URINE (UA) AUTO NEGATIVE (NEGATIVE); KETONE, URINE AUTO TRACE mg/dL (NEGATIVE); LEUKOCYTE ESTERASE, URINE AUTO NEGATIVE (NEGATIVE); MUCUS, URINE LARGE (NEGATIVE); NITRITE, URINE AUTO NEGATIVE (NEGATIVE); PROTEIN, URINE AUTO 1+ mg/dL (NEGATIVE); RBC, URINE AUTO 0 /HPF (0-3); SPECIFIC GRAVITY URINE AUTO 1.024 (1.002-1.035); SQUAMOUS EPITHELIAL CELL UR AU 17 /HPF (0-6); UROBILINOGEN, URINE AUTO 4.0 mg/dL (0.0-2.0); WBC, URINE AUTO 3 /HPF (0-3)
[2025-08-14] MEDS ORDERED: MOM 30 ML SUSPENSION UDC PO PRN (14:45)
[2025-08-14] MEDS ORDERED: MAALOX 30 ML SUSP *UDC PO PRN (14:45)
[2025-08-14] MEDS ORDERED: POTA-151 PO (15:48)
[2025-08-14] MEDS ORDERED: ROPI0.5T33 PO (15:51)
[2025-08-14] MEDS ORDERED: HOME MED LIST COMPLETE! XX SCH (15:55)
[2025-08-14] MEDS ORDERED: MED REC COMMENT (15:56)
[2025-08-14 16:10] VITALS: BP 150/69; TEMP 96.8; O2SAT 96
[2025-08-14] MEDS: NICOTINE 21 MG/24 HR 1 EA TRANSDERMAL TD SCH (17:16)
[2025-08-14] MEDS: traZODone 50 MG TAB PO PRN (22:35)
[2025-08-14] MEDS: ACETAMINOPHEN 325 MG TAB PO PRN (22:36)
[2025-08-15 06:39] VITALS: BP 118/70; TEMP 97.1; O2SAT 97
[2025-08-15] MEDS ORDERED: traZODone 50 MG TAB PO PRN (09:10)
[2025-08-15] MEDS: TORSEMIDE 20 MG TAB PO SCH (10:41)
[2025-08-15] MEDS: POTASSIUM CHLORIDE 10MEQ SR TABLET PO SCH (10:41)
[2025-08-15] MEDS: RISPERIDONE 1 MG TAB PO SCH (11:08)
[2025-08-15] MEDS ORDERED: traZODone 100 MG TAB PO PRN (13:48)
[2025-08-15 15:46] VITALS: BP 137/88; TEMP 97.8; O2SAT 97
[2025-08-15] MEDS: traZODone 100 MG TAB PO SCH (22:30)
[2025-08-15] MEDS: MONTELUKAST 10 MG TAB PO SCH (22:30)
[2025-08-15] MEDS: rOPINIRole 0.25 MG TAB PO SCH (22:31)
[2025-08-16 06:54] VITALS: BP 119/73; TEMP 97.5; O2SAT 97
[2025-08-16] MEDS: SERTRALINE HCL 50 MG TAB PO SCH (09:00)
[2025-08-16] MEDS: VITAMIN D 50,000 UNITS CAPSULE (ERGOCALCIFEROL 1.25MG) PO SCH (09:00)
[2025-08-16 15:16] VITALS: BP 112/74; TEMP 98.1; O2SAT 96
[2025-08-17 06:23] VITALS: BP 125/72; TEMP 97.4; O2SAT 96
[2025-08-17] MEDS: LITHIUM CARBONATE 300 MG CAP PO SCH (09:06)
[2025-08-17 15:32] VITALS: BP 109/72; TEMP 97.4; O2SAT 96
[2025-08-18 06:14] VITALS: BP 120/70; TEMP 98.5; O2SAT 97
[2025-08-18] MEDS: DIVALPROEX 250 MG TAB PO SCH (09:21)
[2025-08-18 16:01] VITALS: BP 133/88; TEMP 97.1; O2SAT 96
[2025-08-19 06:19] VITALS: BP 116/73; TEMP 96.6; O2SAT 96
[2025-08-19 10:05] VITALS: BP 122/73
[2025-08-21 06:35] VITALS: BP 113/58; TEMP 97.3; O2SAT 96
[2025-08-21] MEDS: IBUPROFEN 400 MG TAB PO ONE (12:37)
[2025-08-21 15:36] VITALS: BP 125/82; TEMP 97.8; O2SAT 98
[2025-08-22 06:34] VITALS: BP 102/62; TEMP 97.4; O2SAT 99
[2025-08-22] MEDS ORDERED: RISP-106 PO (14:34)
[2025-08-22] MEDS ORDERED: SERT50TA29 PO (14:34)
[2025-08-22] MEDS ORDERED: TRAZ-252 PO (14:34)
[2025-08-22] MEDS ORDERED: DIVA-65 PO (14:34)
[2025-08-22 15:20] VITALS: BP 111/69; TEMP 97.2; O2SAT 99
[2025-08-23 06:27] VITALS: BP 92/51; TEMP 97.5; O2SAT 94
[2025-08-23 14:21] VITALS: BP 96/55; TEMP 97.5; O2SAT 95
[2025-08-24 06:13] VITALS: BP 103/66; TEMP 98.3; O2SAT 96
[2025-08-24 08:33] VITALS: BP 84/62
[2025-08-24] MEDS: IBUPROFEN 400 MG TAB PO PRN (08:41)
[2025-08-24 12:48] VITALS: BP 98/58
[2025-08-24 14:44] VITALS: BP 98/51; TEMP 97.8; O2SAT 96
[2025-08-24] MEDS: ONDANSETRON 4MG TAB PO PRN (15:17)
[2025-08-24 20:24] VITALS: BP 98/51; TEMP 97.8; O2SAT 96
[2025-08-25 06:28] VITALS: BP 94/54; TEMP 98.6; O2SAT 96
[2025-08-25 08:25] VITALS: BP 112/55
[2025-08-25 14:16] VITALS: BP 112/67; TEMP 97; O2SAT 96
[2025-08-25] MEDS: SUCRALFATE 1 GM TAB PO SCH (17:27)
[2025-08-26 06:29] VITALS: BP 102/54; TEMP 98.1; O2SAT 95
[2025-08-26 08:56] VITALS: BP 115/61
[2025-08-26 15:23] VITALS: BP 121/64; TEMP 98; O2SAT 97
[2025-08-27 06:09] VITALS: BP 108/57; TEMP 97.4; O2SAT 98
[2025-08-27 09:01] VITALS: BP 124/61
[2025-08-27 09:03] VITALS: BP 124/61
== END 2025-08-27 13:46 | disposition home or self-care (01) | DRG 753 ==
LOC: M ED 21:49 → M ED INP 08-14 14:42 → M PSY 08-14 15:55
PROVIDERS: ADMIT General Practice; ATTEND General Practice
DX: F31.30 Bipolar disorder, current episode depressed, mild or moderate severity, unspecified (principal); Z78.1 Physical restraint status; R45.851 Suicidal ideations; F17.210 Nicotine dependence, cigarettes, uncomplicated; Z56.0 Unemployment, unspecified; Z62.810 Personal history of physical and sexual abuse in childhood; Z91.52 Personal history of nonsuicidal self-harm; Z90.79 Acquired absence of other genital organ(s); Z90.49 Acquired absence of other specified parts of digestive tract; Z79.899 Other long term (current) drug therapy; Z88.2 Allergy status to sulfonamides; Z91.040 Latex allergy status; Z91.030 Bee allergy status

== ENCOUNTER 2025-08-30 08:26 | Emergency (ER) | payer OTHER ==
[~2025-08-30 08:26] MED LIST changes: +DIVA-65 PO; +MED REC COMMENT; +POTA-151 PO; +ROPI0.5T33 PO
[2025-08-30 08:37] VITALS: TEMP 97
[2025-08-30 10:35] LABS: BASO # 0.0 10^3/uL (0.0-0.2); BASO % 0.5 % (0.0-1.0); EOS # 0.1 10^3/uL (0.0-0.5); EOS % 0.9 % (0.0-3.0); LYMPH # 1.0 10^3/uL (1.5-5.0); LYMPH % 11.3 % (24.0-44.0); MONO # 0.6 10^3/uL (0.0-0.8); MONO % 7.2 % (2.0-8.0); NEUTROPHILS # 6.9 10^3/uL (1.5-8.5); NEUTROPHILS % 79.5 % (36.0-66.0); PLATELET COUNT, AUTOMATED 307 10^3/uL (150-450)
[2025-08-30] MEDS: ACETAMINOPHEN 500 MG TAB PO ONE (10:37)
[2025-08-30 11:02] LABS: CALCIUM LEVEL 8.8 MG/DL (8.3-10.6); CARBON DIOXIDE LEVEL 30.0 MMOL/L (20-31); CHLORIDE LEVEL 102.0 MMOL/L (98-107); CREATININE FOR GFR 0.85 MG/DL (0.55-1.30); GLOMERULAR FILTRATION RATE 77.9 (>45); MAGNESIUM LEVEL 1.9 MG/DL (1.8-2.4); POTASSIUM SERUM 4.6 MMOL/L (3.5-5.1); SODIUM LEVEL 141.0 MMOL/L (136-145)
[2025-08-30] MEDS ORDERED: BACI500O8 TOP (12:14)
[2025-08-30 12:53] VITALS: BP 118/60; O2SAT 96
== END 2025-08-30 13:00 | disposition home or self-care (01) ==
LOC: M ED 08:26 → EDBD 08:26 → M ED 13:00
DX: S90.932A Unspecified superficial injury of left great toe, initial encounter (principal); M62.81 Muscle weakness (generalized); W19.XXXA Unspecified fall, initial encounter; Y92.009 Unspecified place in unspecified non-institutional (private) residence as the place of occurrence of the external cause; Y93.9 Activity, unspecified; Y99.9 Unspecified external cause status; I10 Essential (primary) hypertension; J44.9 Chronic obstructive pulmonary disease, unspecified; F17.200 Nicotine dependence, unspecified, uncomplicated; Z79.899 Other long term (current) drug therapy; Z88.2 Allergy status to sulfonamides; Z91.040 Latex allergy status; Z91.030 Bee allergy status